=== PATIENT | female | born 1950 | race Caucasian/White ===

== ENCOUNTER 2023-09-01 13:41 | Inpatient (IN) ==
--- NOTE | 2023-09-01 14:03 | ED Triage Note ---
Date of Service September 01, 2023 Provider in Triage Author: Lynda Greenfield History of Present Illness This patient was briefly evaluated while in triage. An abbreviated physical exam was performed. This patient is a 73-year-old Female who presents to the ED for evaluation of nausea/vomiting. States she started with cold like symptoms about 9 days ago. Symptoms started to improve and then got worse last night. Denies fevers. Physical Exam Constitutional: alert and oriented x3. no acute distress. HEENT: normocephalic, atraumatic. normal conjunctiva.PERRLA. EOM's grossly intact. Respiratory: lungs are clear to auscultation without wheezes, rhonchi, or rales bilaterally. equal chest rise. normal respiratory effort, no accessory muscle use. Cardiovascular: normal heart sounds without murmur. regular rate and rhythm. GI: abdomen is soft, nontender. No palpable masses. No rebound tenderness or guarding. MSK: moves all 4 extremities spontaneously Psych:appropriate mood and affect. Initial orders for labs and / or imaging were placed and patient was placed in the waiting area until a bed is available. Please see further documentation for the full ED course.
[2023-09-01] MEDS ORDERED: ONDANSETRON INJ 2 MG/ML 2 ML VIAL IV STA ×2 (14:04→19:47)
[2023-09-01] MEDS ORDERED: SODIUM CHLORIDE 0.9% 500 ML IV ONE ×2 (14:05→19:47)
--- NOTE | 2023-09-01 15:12 | XRay Report ---
XR chest 1V not portable HISTORY: vomiting COMPARISON: None. FINDINGS: The lungs are clear. Cardiac silhouette is normal in size. No pleural effusions. No pneumot horax. IMPRESSION: No acute process. ACT 112: Negative or not required by law. Electronically signed by: Garland Gifford M.D. 09/01/2023 3:10 PM
[2023-09-01 15:59] LABS: Hematocrit (blood only) 34.2 % (37.0-47.0); Hemoglobin 11.7 g/dl (12.0-16.0); Mean Corpuscular Hemoglobin 31.1 pg (25.0-34.0); Mean Corpuscular Hgb Conc 34.2 g/dL (32.0-36.0); Mean Platelet Volume 10.1 fL (9.4-12.4); Platelet Count 152 K/uL (130-400); RDW Coefficient of Variation 13.2 % (11.5-14.5); RDW Standard Deviation 44.4 fL (36.4-46.3); Red Blood Count 3.76 M/uL (4.20-5.40); White Blood Count 13.05 K/ul (4.8-10.8)
[2023-09-01 16:20] LABS: Albumin Globulin Ratio 1.4 (0.9-2); Albumin Level 4.2 gm/dl (3.4-5.0); BUN Creatinine Ratio 20.2 (10-20); Bilirubin,Total 0.7 mg/dl (0.2-1.0); Calcium 9.4 mg/dl (8.6-10.3); Creatinine Clr Calc Pharmacy 31.9 ml/min; Est GFR (African American) 46.9 ml/min; Est GFR (Non-African American) 40.5 ml/min; Potassium 3.7 mmol/L (3.5-5.1); Total Protein 7.2 gm/dl (6.0-8.3)
[2023-09-01 16:21] LABS: Basophils # (auto) 0.02 K/uL (0.00-0.20); Basophils % (auto) 0.2 %; Immature Granulocytes # (auto) 0.08 K/uL (0.01-0.20); Immature Granulocytes % (auto) 0.6 %; Lymphocytes # (auto) 0.42 K/uL (1.20-3.40); Lymphocytes % (auto) 3.2 %; Monocytes % (auto) 3.1 %; Neutrophils # (auto) 12.13 K/uL (1.40-6.50); Neutrophils % (auto) 92.9 %
[2023-09-01 16:23] LABS: Adenovirus PCR Not Detected (NotDetected); Bordetella parapertussis PCR Not Detected (NotDetected); Bordetella pertussis PCR Not Detected (NotDetected); Chlamydia pneumoniae PCR Not Detected (NotDetected); Coronavirus 229E PCR Not Detected (NotDetected); Coronavirus HKU1 PCR Not Detected (NotDetected); Coronavirus NL63 PCR Not Detected (NotDetected); Coronavirus OC43PCR Not Detected (NotDetected); Human Metapneumovirus PCR Not Detected (NotDetected); Influenza A PCR Not Detected (NotDetected); Influenza B PCR Not Detected (NotDetected); Mycoplasma pneumoniae PCR Not Detected (NotDetected); Parainfluenza Virus 1 PCR Not Detected (NotDetected); Parainfluenza Virus 2 PCR Not Detected (NotDetected); Parainfluenza Virus 3 PCR Not Detected (NotDetected); Parainfluenza Virus 4 PCR Not Detected (NotDetected); Respiratory Syncytial VirusPCR Not Detected (NotDetected); Rhinovirus/Enterovirus PCR Not Detected (NotDetected)
[2023-09-01 16:35] LABS: Coronavirus CoV-2 (COVID19)PCR DETECTED (NotDetected)
[2023-09-01 18:01] LABS: Appearance Urine Cloudy (Clear); Bacteria Urine Automated 4+ (Negative); Bilirubin Urine Negative (Negative); Blood Urine 2+ (Negative); Color Urine Yellow; Epithelial Cell Urine Auto 20-30 /lpf (0-5); Glucose Urine UA Negative (Negative); Ketones Urine Negative (Negative); Leukocyte Esterase Urine 2+ (Negative); Nitrite Urine Positive (Negative); Protein Urine 2+ (Negative); RBC Urine Automated 0-4 /hpf (0-4); Specific Gravity Urine 1.017 (1.000-1.030); Urobilinogen Urine Negative (Negative); WBC Urine Automated >30 /hpf (0-5); pH Urine 6.5 (4.5-7.5)
[2023-09-01] MEDS ORDERED: cefTRIAXone SODIUM 2,000 MG/50 ML BAG IV STA (18:03)
[2023-09-01 18:24] LABS: Troponin I High Sensitivity 21.9 pg/ml (0-14)
--- NOTE | 2023-09-01 19:29 | Emergency Department Note ---
Impression & Plan Nausea & vomiting, COVID-19, Acute UTI (urinary tract infection), Non-ST elevation GA (NSTEMI) ED Provider Note HISTORY OF PRESENT ILLNESS: Patient is a 73-year-old female presenting with nausea and vomiting. Patient reports that she has been feeling generally unwell for the last 9 days. Reports that 9 days ago she started feeling very fatigued and slept for 72 hours straight. She reports that she then started having a cough and general malaise that worsened. Reports that today she started having dry heaving. Denies any abdominal pain. Reports poor oral intake secondary to her nausea. Denies any fevers at home, but reports she has had chills. Denies any recent sick contact exposures. Denies any chest pain or significant shortness of breath ROS: as above PHYSICAL EXAM: Constitutional: Patient appears in no acute distress. HENT: Head: Normocephalic and atraumatic. Eyes: EOMI, PERRL Mouth/Throat: Mucous membranes moist. Neck: Trachea midline. Neck supple. Cardiovascular: RRR, No murmurs, rubs or gallops. Intact distal pulses. Pulmonary/Chest: No respiratory distress. Breath sounds clear and equal bilaterally. No wheezes or rales. Abdominal: Abdomen soft, no tenderness, rebound or guarding. Musculoskeletal: No edema, tenderness or deformity noted. Skin: Warm and dry. No rash, erythema, pallor or cyanosis Psychiatric: Appropriate mood and affect for situation. Neurological: Alert and keenly responsive. CN II-XII grossly intact, moving all extremities equally and fully. MDM: - Vitals signs stable. - History obtained via patient. Patient presents with nausea and vomiting. Patient reports she is been feeling unwell for the last 9 days. Denies any abdominal pain. Denies any chest pain or shortness of breath. Reports that she has had poor oral intake secondary to nausea and dry heaving in the last 24 hours. - Chronic conditions affecting care: HTN; HLD; hypothyroidism - Differential diagnoses include, but are not limited to: viral syndrome; UTI; pneumonia; ACS; electrolyte abnormality; dehydration - Order placed for continuous cardiac monitoring. At this time, monitor showed rate of 80 bpm with normal sinus rhythm, per my interpretation. - External medical records reviewed. Patient's last exercise echocardiogram was noted to be on 06/04/2014. Stress test was negative. - EKG interpreted by myself showed normal sinus rhythm. Rate 93 bpm. QTc 474. No acute ischemic changes. - Laboratory workup interpreted by myself showed leukocytosis (WBC 13.05) with left shift; stable electrolytes; slightly elevated creatinine (Cr 1.29); elevated troponin (21.9); normal lipase - Viral respiratory panel positive for COVID-19 - UA showed evidence of infection - Repeat troponin slightly risen at 22.4 - Patient given 1L NS and 4 mg IV zofran for symptoms in ER. Given 2g IV rocephin for UTI - CXR negative for pneumonia, per my interpretation - On reassessment, patient reports feeling slightly nauseous after rocephin. Given 500 cc NS and 4 mg IV zofran again. - Discussion was had with occasional caregiver about patient's case and need for admission - Hospitalist consulted for admission - [facility] ASSESSMENT AND PLAN: Diagnosis: nausea and vomiting; COVID-19; acute UTI; NSTEMI Plan: admit Past Med/Surg History Medical History GERD (gastroesophageal reflux disease) Hyperlipidemia Hypertension Hypothyroidism Osteoarthritis Surgical History History of bilateral tubal ligation History of cataract surgery bilat History of tooth extraction Hx of fracture of tibia left with repair Family History Grandmother (Paternal) Diabetes Brother Diabetes Social History Smoking Status: Never smoker Second Hand Exposure: No; Do You Dip or Chew Tobacco: No; Hx Alcohol Use: No Hx Substance Use: No Preferred Language: Irish Communication Ability: Effective Internal Sales Engineer Required: No Beliefs That Will Affect Care: None Current Living Situation: Spouse Feels Safe at Home: Yes Assistive Devices: Cane and Glasses Allergies Allergies Allergy/AdvReac Type Severity Reaction Status Date / Time alendronate sodium AdvReac Severe N/V, Verified 09/01/23 19:09 [From Fosamax] LIGHTHEADEDNESS, MUSCLE PAIN, JAW PAIN Home Meds Home Medications Medication Instructions Recorded Confirmed acetaminophen 500 mg capsule 1,000 mg PO TID PRN Pain 01/13/22 09/01/23 amlodipine 5 mg-benazepril 10 mg 1 cap PO QAM 01/13/22 09/01/23 capsule aspirin 81 mg tablet,delayed 81 mg PO PM 01/13/22 09/01/23 release celecoxib 200 mg capsule (Celebrex) 200 mg PO DAILY PRN Pain 01/13/22 09/01/23 cholecalciferol (vitamin D3) 25 25 mcg PO PM 01/13/22 09/01/23 mcg (1,000 unit) capsule (Vitamin D3) levothyroxine 75 mcg tablet 75 mcg PO QAM 01/13/22 09/01/23 rosuvastatin 40 mg tablet (Crestor) 40 mg PO PM 01/13/22 09/01/23 omeprazole 20 mg capsule,delayed 20 mg PO DAILY PRN 09/01/23 09/01/23 release HEARTBURN/INDIGESTION Results & Data (ED) Vital Signs Vital Signs - 24 hr 09/01/23 14:01 09/01/23 16:55 09/01/23 19:27 Temperature 36.6 C Temperature Source Skin Pulse Rate 90 Pulse Rate [Apical] 79 Pulse Rate [Left Finger] 70 Respiratory Rate 18 20 21 Respiratory Effort / Characteristics Non-Labored Spontaneous Respiratory Pattern Regular Blood Pressure 121/66 Blood Pressure [Left Arm] 115/70 115/70 Blood Pressure Mean 84 Blood Pressure Mean [Left Arm] 85 85 Blood Pressure Position [Left Arm] Semi-fowlers Pulse Oximetry 95 98 96 Oxygen Delivery Method Room Air Sepsis Recent Fever Within 48 Hours No Sepsis New/Unexplained Change in Mental Status No Sepsis Action Taken by Nursing No Action Required 09/01/23 19:29 Temperature Temperature Source Pulse Rate 81 Pulse Rate [Apical] Pulse Rate [Left Finger] Respiratory Rate Respiratory Effort / Characteristics Respiratory Pattern Blood Pressure Blood Pressure [Left Arm] Blood Pressure Mean Blood Pressure Mean [Left Arm] Blood Pressure Position [Left Arm] Pulse Oximetry Oxygen Delivery Method Sepsis Recent Fever Within 48 Hours Sepsis New/Unexplained Change in Mental Status Sepsis Action Taken by Nursing Laboratory Data 09/01/23 15:20 09/01/23 15:20 Lab Results 09/01/23 09/01/23 09/01/23 Range/Units 14:04 15:20 15:37 WBC 13.05 H (4.8-10.8) K/ul RBC 3.76 L (4.20-5.40) M/uL Hgb 11.7 L (12.0-16.0) g/dl Hct 34.2 L (37.0-47.0) % MCV 91.0 (80.0-100.0) fL MCH 31.1 (25.0-34.0) pg MCHC 34.2 (32.0-36.0) g/dL RDW Std Deviation 44.4 (36.4-46.3) fL RDW Coeff of Peter 13.2 (11.5-14.5) % Plt Count 152 (130-400) K/uL MPV 10.1 (9.4-12.4) fL Immature Gran % (Auto) 0.6 % Neut % (Auto) 92.9 % Lymph % (Auto) 3.2 % [place] % (Auto) 3.1 % Eos % (Auto) 0.0 % Baso % (Auto) 0.2 % Neut # (Auto) 12.13 H (1.40-6.50) K/uL Lymph # (Auto) 0.42 L (1.20-3.40) K/uL [place] # (Auto) 0.40 (0.11-0.59) K/uL Eos # (Auto) 0.00 (0.00-0.50) K/uL Baso # (Auto) 0.02 (0.00-0.20) K/uL Immature Gran # (Auto) 0.08 (0.01-0.20) K/uL Sodium 137 (136-145) mmol/L Potassium 3.7 (3.5-5.1) mmol/L Chloride 103 (98-107) mmol/L Carbon Dioxide 25 (21-32) mmol/L Anion Gap 9 (3-11) BUN 26 H (6-23) mg/dl Creatinine 1.29 H (0.6-1.2) mg/dl Est Cr Clr Drug Dosing 31.9 ml/min Est GFR ( Amer) 46.9 ml/min Est GFR (Non-Af Amer) 40.5 ml/min BUN/Creatinine Ratio 20.2 H (10-20) Glucose 114 H (70-99(Fasting)) mg/dl Calcium 9.4 (8.6-10.3) mg/dl Total Bilirubin 0.7 (0.2-1.0) mg/dl AST 15 (13-39) U/L ALT 14 (7-52) U/L Alkaline Phosphatase 89 (34-104) U/L Troponin I High Sens 21.9 H (0-14) pg/ml Total Protein 7.2 (6.0-8.3) gm/dl Albumin 4.2 (3.4-5.0) gm/dl Globulin 3.0 (2.5-4.0) gm/dl Albumin/Globulin Ratio 1.4 (0.9-2) Lipase 12 (11-82) U/L Urine Color Yellow Urine Appearance Cloudy A (Clear) Urine pH 6.5 (4.5-7.5) Ur Specific [place] 1.017 (1.000-1.030) Urine Protein 2+ H (Negative) Urine Glucose (UA) Negative (Negative) Urine Ketones Negative (Negative) Urine Blood 2+ H (Negative) Urine Nitrite Positive A (Negative) Urine Bilirubin Negative (Negative) Urine Urobilinogen Negative (Negative) Ur Leukocyte Esterase 2+ H (Negative) Urine WBC (Auto) >30 H (0-5) /hpf Urine RBC (Auto) 0-4 (0-4) /hpf U Hyaline Cast (Auto) 1-5 (0-5) /lpf U Epithel Cells (Auto) 20-30 H (0-5) /lpf Urine Bacteria (Auto) 4+ H (Negative) Adenovirus (PCR) Not Detected (NotDetected) B. pertussis DNA (PCR) Not Detected (NotDetected) B.parapertussis DNA PCR Not Detected (NotDetected) C. pneumoniae DNA (PCR) Not Detected (NotDetected) Coronavirus OC43 (PCR) Not Detected (NotDetected) Coronavirus HKU1 (PCR) Not Detected (NotDetected) Coronavirus 229E (PCR) Not Detected (NotDetected) SARS-CoV-2 (PCR) DETECTED A* (NotDetected) Coronavirus NL63 (PCR) Not Detected (NotDetected) Human Metapneumovir PCR Not Detected (NotDetected) Influenza Type A (PCR) Not Detected (NotDetected) Influenza Type B (PCR) Not Detected (NotDetected) M. pneumoniae (PCR) Not Detected (NotDetected) Parainfluenza 1 (PCR) Not Detected (NotDetected) Parainfluenza 2 (PCR) Not Detected (NotDetected) Parainfluenza 3 (PCR) Not Detected (NotDetected) Parainfluenza 4 (PCR) Not Detected (NotDetected) RSV (PCR) Not Detected (NotDetected) Entero/Rhino (PCR) Not Detected (NotDetected) 09/01/23 Range/Units 17:32 WBC (4.8-10.8) K/ul RBC (4.20-5.40) M/uL Hgb (12.0-16.0) g/dl Hct (37.0-47.0) % MCV (80.0-100.0) fL MCH (25.0-34.0) pg MCHC (32.0-36.0) g/dL RDW Std Deviation (36.4-46.3) fL RDW Coeff of Peter (11.5-14.5) % Plt Count (130-400) K/uL MPV (9.4-12.4) fL Immature Gran % (Auto) % Neut % (Auto) % Lymph % (Auto) % [place] % (Auto) % Eos % (Auto) % Baso % (Auto) % Neut # (Auto) (1.40-6.50) K/uL Lymph # (Auto) (1.20-3.40) K/uL [place] # (Auto) (0.11-0.59) K/uL Eos # (Auto) (0.00-0.50) K/uL Baso # (Auto) (0.00-0.20) K/uL Immature Gran # (Auto) (0.01-0.20) K/uL Sodium (136-145) mmol/L Potassium (3.5-5.1) mmol/L Chloride (98-107) mmol/L Carbon Dioxide (21-32) mmol/L Anion Gap (3-11) BUN (6-23) mg/dl Creatinine (0.6-1.2) mg/dl Est Cr Clr Drug Dosing ml/min Est GFR ( Amer) ml/min Est GFR (Non-Af Amer) ml/min BUN/Creatinine Ratio (10-20) Glucose (70-99(Fasting)) mg/dl Calcium (8.6-10.3) mg/dl Total Bilirubin (0.2-1.0) mg/dl AST (13-39) U/L ALT (7-52) U/L Alkaline Phosphatase (34-104) U/L Troponin I High Sens 22.4 H (0-14) pg/ml Total Protein (6.0-8.3) gm/dl Albumin (3.4-5.0) gm/dl Globulin (2.5-4.0) gm/dl Albumin/Globulin Ratio (0.9-2) Lipase (11-82) U/L Urine Color Urine Appearance (Clear) Urine pH (4.5-7.5) Ur Specific [place] (1.000-1.030) Urine Protein (Negative) Urine Glucose (UA) (Negative) Urine Ketones (Negative) Urine Blood (Negative) Urine Nitrite (Negative) Urine Bilirubin (Negative) Urine Urobilinogen (Negative) Ur Leukocyte Esterase (Negative) Urine WBC (Auto) (0-5) /hpf Urine RBC (Auto) (0-4) /hpf U Hyaline Cast (Auto) (0-5) /lpf U Epithel Cells (Auto) (0-5) /lpf Urine Bacteria (Auto) (Negative) Adenovirus (PCR) (NotDetected) B. pertussis DNA (PCR) (NotDetected) B.parapertussis DNA PCR (NotDetected) C. pneumoniae DNA (PCR) (NotDetected) Coronavirus OC43 (PCR) (NotDetected) Coronavirus HKU1 (PCR) (NotDetected) Coronavirus 229E (PCR) (NotDetected) SARS-CoV-2 (PCR) (NotDetected) Coronavirus NL63 (PCR) (NotDetected) Human Metapneumovir PCR (NotDetected) Influenza Type A (PCR) (NotDetected) Influenza Type B (PCR) (NotDetected) M. pneumoniae (PCR) (NotDetected) Parainfluenza 1 (PCR) (NotDetected) Parainfluenza 2 (PCR) (NotDetected) Parainfluenza 3 (PCR) (NotDetected) Parainfluenza 4 (PCR) (NotDetected) RSV (PCR) (NotDetected) Entero/Rhino (PCR) (NotDetected) Administered Medications Discontinued Medications Sodium Chloride (Nss) 500 mls @ 999 mls/hr IV .Q31M ONE Stop: 09/01/23 14:35 Last Infusion: 09/01/23 16:00 Dose: Infused Documented By: Admin: 09/01/23 15:29 Dose: 999 mls/hr Documented By: STEPH Ceftriaxone Sodium (Rocephin) 2,000 mg in 50 mls @ 100 mls/hr IV NOW STA Stop: 09/01/23 18:32 Last Infusion: 09/01/23 18:40 Dose: Infused Documented By: Admin: 09/01/23 18:07 Dose: 100 mls/hr Documented By: SOLITARIO Ondansetron HCl (Ondansetron Inj 2 Mg/Ml 2 Ml Vial) 4 mg IV NOW STA Stop: 09/01/23 14:05 Last Admin: 09/01/23 15:29 Dose: 4 mg Documented By: STEPH Imaging Data Radiologist's Impression: Chest X-Ray 09/01/23 14:03 XR chest 1V not portable HISTORY: vomiting COMPARISON: None. FINDINGS: The lungs are clear. Cardiac silhouette is normal in size. No pleural effusions. No pneumothorax. IMPRESSION: No acute process. ACT 112: Negative or not required by law. Electronically signed by: Garland Gifford M.D. 09/01/2023 3:10 PM Discharge Plan Visit Data Chief Complaint: Flu Like Symptoms Stated Complaint: FLU LIKE SYMPTOMS FOR 9 DAYS ED Provider: Xi Ramírez Discharge Problem: Nausea & vomiting, COVID-19, Acute UTI (urinary tract infection), Non-ST elevation GA (NSTEMI) Patient Disposition: Home - Self-Care Discharge Instructions Krames/Other Patient Handouts: COVID-19 Home Care, ED Cystitis Female Adult Activity Restrictions/Additional Instructions: Your workup in the emergency department today showed that she had a urinary tract infection and tested positive for COVID-19. Recommend staying well- hydrated for the next few days and slowly advancing her diet as tolerated. Please take the antibiotic for your urine infection as instructed. Please return to the emergency department if you develop inability to tolerate oral intake, chest pain or shortness of breath, increased work of breathing, changes in mental status, or any new or worsening symptoms for Forms Stand Alone Forms: My [facility], Important Visit Information Prescriptions Prescriptions: No Action celecoxib [Celebrex] 200 mg Capsule 200 mg PO DAILY PRN (Reason: Pain) aspirin 81 mg Tablet,Delayed Release (Dr/Ec) 81 mg PO PM levothyroxine 75 mcg Tablet 75 mcg PO QAM amlodipine-benazepril 5-10 mg Capsule 1 cap PO QAM acetaminophen 500 mg Capsule 1,000 mg PO TID PRN (Reason: Pain) cholecalciferol (vitamin D3) [Vitamin D3] 25 mcg (1,000 unit) Capsule 25 mcg PO PM rosuvastatin [Crestor] 40 mg Tablet 40 mg PO PM omeprazole 20 mg Capsule,Delayed Release(Dr/Ec) 20 mg PO DAILY PRN (Reason: HEARTBURN/INDIGESTION) Referrals Referrals: Mariluz Peace MD [Primary Care Provider] -
--- NOTE | 2023-09-01 21:32 | History & Physical Report ---
Date of Service September 01, 2023 Assessment & Plan (1) COVID-19: Plan: 73-year-old female with past med history significant for hypothyroidism, hypertension, prediabetes, left bundle branch block, hypertension, CKD stage III, osteoarthritis, comes because of nausea and chills and flulike symptoms and found to COVID and UTI. Patient states she had flu like symptoms 9 days ago and for first 4 days she was lethargic had headaches and poor appetite and body ach es but no fevers and that got better after 4 days for couple of days then again she was not feeling great and last night she developed nausea and chills which prompted her to come to the ER today. Has some mild headache today. Denies any chest pain. Currently no shortness of breath. Has some nausea. Mild abdominal discomfort. 1 week ago she had diarrhea but that got resolved. Micturating okay. No burning micturition. No hematuria. Currently resting comfortably. COVID-19 Says having symptoms for last 9 days Saturating okay on room air COVID precautions Supportive care UTI Contributing to her symptoms Started on Rocephin Gentle fluids Follow the cultures Mild elevation of troponin Mostly demand ischemia Asymptomatic Follow serial enzymes Hypothyroidism On Synthyroid Prediabetes Follow HbA1c levels CKD stage III Presented with creatinine 1.29 Seems around baseline Follow labs DVT prophylaxis Lovenox Disposition Med/tele Full code History of Present Illness Chief Complaint: COVID and UTI Primary Care Provider: Mariluz Peace MD 73-year-old female with past med history significant for hypothyroidism, hypertension, prediabetes, left bundle branch block, hypertension, CKD stage III, osteoarthritis, comes because of nausea and chills and flulike symptoms and found to COVID and UTI. Patient states she had flu like symptoms 9 days ago and for first 4 days she was lethargic had headaches and poor appetite and body aches but no fevers and that got better after 4 days for couple of days then again she was not feeling great and last night she developed nausea and chills which prompted her to come to the ER today. Has some mild headache today. Denies any chest pain. Currently no shortness of breath. Has some nausea. Mild abdominal discomfort. 1 week ago she had diarrhea but that got resolved. Micturating okay. No burning micturition. No hematuria. Currently resting comfortably. Past medical history. As mentioned above. Past surgical history. Left ankle surgery. Cataracts Social history. . Smoked quarter pack a day for 8 years. No alcohol use. No drug use. Family history. Brother had diabetes. Heart disorder. Father had hyperlipidemia. Hypertension. Mother had lung disorder. Allergies Allergy/AdvReac Type Severity Reaction Status Date / Time alendronate sodium AdvReac Severe N/V, Verified 09/01/23 19:09 [From Fosamax] LIGHTHEADEDNESS, MUSCLE PAIN, JAW PAIN Home Medications Medication Instructions Recorded Confirmed Type acetaminophen 500 mg capsule 1,000 mg PO TID PRN Pain 01/13/22 09/01/23 History amlodipine 5 mg-benazepril 10 mg 1 cap PO QAM 01/13/22 09/01/23 History capsule aspirin 81 mg tablet,delayed 81 mg PO PM 01/13/22 09/01/23 History release celecoxib 200 mg capsule (Celebrex) 200 mg PO DAILY PRN Pain 01/13/22 09/01/23 History cholecalciferol (vitamin D3) 25 25 mcg PO PM 01/13/22 09/01/23 History mcg (1,000 unit) capsule (Vitamin D3) levothyroxine 75 mcg tablet 75 mcg PO QAM 01/13/22 09/01/23 History rosuvastatin 40 mg tablet (Crestor) 40 mg PO PM 01/13/22 09/01/23 History omeprazole 20 mg capsule,delayed 20 mg PO DAILY PRN 09/01/23 09/01/23 History release HEARTBURN/INDIGESTION Past Med/Surg History Medical History GERD (gastroesophageal reflux disease) Hyperlipidemia Hypertension Hypothyroidism Osteoarthritis Surgical History History of bilateral tubal ligation History of cataract surgery bilat History of tooth extraction Hx of fracture of tibia left with repair Family History Grandmother (Paternal) Diabetes Brother Diabetes Social History Smoking Status: Never smoker Second Hand Exposure: No; Do You Dip or Chew Tobacco: No; Hx Alcohol Use: No Hx Substance Use: No Preferred Language: [place]ican Communication Ability: Effective Ultrasonographer Required: No Beliefs That Will Affect Care: None Current Living Situation: Spouse Feels Safe at Home: Yes Assistive Devices: None Review of Systems Review of Systems: All systems reviewed & are unremarkable except as noted in HPI & below Physical Exam Physical Exam: General- adult Head- atraumatic Eyes- PERRL. ENT- oropharynx clear Neck- supple, no JVD. Lungs- clear to auscultation no wheezing or crackles Heart- regular rhythm; no murmur, no gallop. Abdomen- normal bowel sounds, soft, nontender, no distension. Extremities- no pretibial edema, no erythema Neuro- alert, oriented x 3; PERRL, no facial palsy; no dysarthria; moves extremities Skin- warm & dry Results & Data Results & Data Vital Signs (Past 12 Hours) Vital Signs Temp Pulse Pulse Pulse Resp BP BP 09/01/23 19:29 81 09/01/23 19:27 79 21 115/70 09/01/23 16:55 70 20 115/70 09/01/23 14:01 36.6 C 90 18 121/66 Pulse Ox O2 Del Method 09/01/23 19:29 09/01/23 19:27 96 Room Air 09/01/23 16:55 98 09/01/23 14:01 95 Diagnostic Findings Laboratory Results WBC 13.05 K/ul (4.8-10.8) H 09/01/23 15:20 RBC 3.76 M/uL (4.20-5.40) L 09/01/23 15:20 Hgb 11.7 g/dl (12.0-16.0) L 09/01/23 15:20 Hct 34.2 % (37.0-47.0) L 09/01/23 15:20 MCV 91.0 fL (80.0-100.0) 09/01/23 15:20 MCH 31.1 pg (25.0-34.0) 09/01/23 15:20 MCHC 34.2 g/dL (32.0-36.0) 09/01/23 15:20 RDW Std Deviation 44.4 fL (36.4-46.3) 09/01/23 15:20 RDW Coeff of Peter 13.2 % (11.5-14.5) 09/01/23 15:20 Plt Count 152 K/uL (130-400) 09/01/23 15:20 MPV 10.1 fL (9.4-12.4) 09/01/23 15:20 Immature Gran % (Auto) 0.6 % 09/01/23 15:20 Neut % (Auto) 92.9 % 09/01/23 15:20 Lymph % (Auto) 3.2 % 09/01/23 15:20 [place] % (Auto) 3.1 % 09/01/23 15:20 Eos % (Auto) 0.0 % 09/01/23 15:20 Baso % (Auto) 0.2 % 09/01/23 15:20 Neut # (Auto) 12.13 K/uL (1.40-6.50) H 09/01/23 15:20 Lymph # (Auto) 0.42 K/uL (1.20-3.40) L 09/01/23 15:20 Franklin # (Auto) 0.40 K/uL (0.11-0.59) 09/01/23 15:20 Eos # (Auto) 0.00 K/uL (0.00-0.50) 09/01/23 15:20 Baso # (Auto) 0.02 K/uL (0.00-0.20) 09/01/23 15:20 Immature Gran # (Auto) 0.08 K/uL (0.01-0.20) 09/01/23 15:20 Sodium 137 mmol/L (136-145) 09/01/23 15:20 Potassium 3.7 mmol/L (3.5-5.1) 09/01/23 15:20 Chloride 103 mmol/L (98-107) 09/01/23 15:20 Carbon Dioxide 25 mmol/L (21-32) 09/01/23 15:20 Anion Gap 9 (3-11) 09/01/23 15:20 BUN 26 mg/dl (6-23) H 09/01/23 15:20 Creatinine 1.29 mg/dl (0.6-1.2) H 09/01/23 15:20 Est Cr Clr Drug Dosing 31.9 ml/min 09/01/23 15:20 Est GFR ( Amer) 46.9 ml/min 09/01/23 15:20 Est GFR (Non-Af Amer) 40.5 ml/min 09/01/23 15:20 BUN/Creatinine Ratio 20.2 (10-20) H 09/01/23 15:20 Glucose 114 mg/dl (70-99(Fasting)) H 09/01/23 15:20 Calcium 9.4 mg/dl (8.6-10.3) 09/01/23 15:20 Total Bilirubin 0.7 mg/dl (0.2-1.0) 09/01/23 15:20 AST 15 U/L (13-39) 09/01/23 15:20 ALT 14 U/L (7-52) 09/01/23 15:20 Alkaline Phosphatase 89 U/L (34-104) 09/01/23 15:20 Troponin I High Sens 22.4 pg/ml (0-14) H 09/01/23 17:32 Total Protein 7.2 gm/dl (6.0-8.3) 09/01/23 15:20 Albumin 4.2 gm/dl (3.4-5.0) 09/01/23 15:20 Globulin 3.0 gm/dl (2.5-4.0) 09/01/23 15:20 Albumin/Globulin Ratio 1.4 (0.9-2) 09/01/23 15:20 Lipase 12 U/L (11-82) 09/01/23 15:20 Urine Color Yellow 09/01/23 15:37 Urine Appearance Cloudy (Clear) A 09/01/23 15:37 Urine pH 6.5 (4.5-7.5) 09/01/23 15:37 Ur Specific [place] 1.017 (1.000-1.030) 09/01/23 15:37 Urine Protein 2+ (Negative) H 09/01/23 15:37 Urine Glucose (UA) Negative (Negative) 09/01/23 15:37 Urine Ketones Negative (Negative) 09/01/23 15:37 Urine Blood 2+ (Negative) H 09/01/23 15:37 Urine Nitrite Positive (Negative) A 09/01/23 15:37 Urine Bilirubin Negative (Negative) 09/01/23 15:37 Urine Urobilinogen Negative (Negative) 09/01/23 15:37 Ur Leukocyte Esterase 2+ (Negative) H 09/01/23 15:37 Urine WBC (Auto) >30 /hpf (0-5) H 09/01/23 15:37 Urine RBC (Auto) 0-4 /hpf (0-4) 09/01/23 15:37 U Hyaline Cast (Auto) 1-5 /lpf (0-5) 09/01/23 15:37 U Epithel Cells (Auto) 20-30 /lpf (0-5) H 09/01/23 15:37 Urine Bacteria (Auto) 4+ (Negative) H 09/01/23 15:37 Adenovirus (PCR) Not Detected (NotDetected) 09/01/23 14:04 B. pertussis DNA (PCR) Not Detected (NotDetected) 09/01/23 14:04 B.parapertussis DNA PCR Not Detected (NotDetected) 09/01/23 14:04 C. pneumoniae DNA (PCR) Not Detected (NotDetected) 09/01/23 14:04 Coronavirus OC43 (PCR) Not Detected (NotDetected) 09/01/23 14:04 Coronavirus HKU1 (PCR) Not Detected (NotDetected) 09/01/23 14:04 Coronavirus 229E (PCR) Not Detected (NotDetected) 09/01/23 14:04 SARS-CoV-2 (PCR) DETECTED (NotDetected) A* 09/01/23 14:04 Coronavirus NL63 (PCR) Not Detected (NotDetected) 09/01/23 14:04 Human Metapneumovir PCR Not Detected (NotDetected) 09/01/23 14:04 Influenza Type A (PCR) Not Detected (NotDetected) 09/01/23 14:04 Influenza Type B (PCR) Not Detected (NotDetected) 09/01/23 14:04 M. pneumoniae (PCR) Not Detected (NotDetected) 09/01/23 14:04 Parainfluenza 1 (PCR) Not Detected (NotDetected) 09/01/23 14:04 Parainfluenza 2 (PCR) Not Detected (NotDetected) 09/01/23 14:04 Parainfluenza 3 (PCR) Not Detected (NotDetected) 09/01/23 14:04 Parainfluenza 4 (PCR) Not Detected (NotDetected) 09/01/23 14:04 RSV (PCR) Not Detected (NotDetected) 09/01/23 14:04 Entero/Rhino (PCR) Not Detected (NotDetected) 09/01/23 14:04 Impressions Chest X-Ray 09/01/23 14:03 XR chest 1V not portable HISTORY: vomiting COMPARISON: None. FINDINGS: The lungs are clear. Cardiac silhouette is normal in size. No pleural effusions. No pneumothorax. IMPRESSION: No acute process. ACT 112: Negative or not required by law. Electronically signed by: Garland Gifford M.D. 09/01/2023 3:10 PM ECG Additional Comments: ECG. Normal sinus rhythm with a rate of 93. Left axis deviation. Code Status & VTE Plan VTE Prophylaxis Plan VTE Prophylaxis will be ordered: Yes
[2023-09-01] MEDS ORDERED: NITROGLYCERIN SL 0.4 MG/TAB TAB SL PRN (23:32)
[2023-09-01] MEDS ORDERED: ACETAMINOPHEN 325 MG TAB PO PRN (23:32)
[2023-09-01] MEDS ORDERED: D5W AND 1/2NSS 1,000 ML IV SCH (23:32)
[2023-09-01] MEDS ORDERED: ONDANSETRON INJ 2 MG/ML 2 ML VIAL IV PRN (23:32)
[2023-09-01] MEDS ORDERED: PANTOprazole 40 MG TAB PO PRN (23:40)
[2023-09-02] MEDS: ENOXAPARIN INJ 40 MG/0.4 ML SYR SQ SCH ×2 (02:11→20:40)
[2023-09-02] MEDS: LEVOTHYROXINE SODIUM 75 MCG TABLET PO SCH (06:04)
[2023-09-02 06:16] LABS: Basophils # (auto) 0.02 K/uL (0.00-0.20); Basophils % (auto) 0.3 %; Eosinophils # (auto) 0.01 K/uL (0.00-0.50); Eosinophils % (auto) 0.1 %; Hematocrit (blood only) 30.8 % (37.0-47.0); Immature Granulocytes # (auto) 0.02 K/uL (0.01-0.20); Immature Granulocytes % (auto) 0.3 %; Lymphocytes % (auto) 10.6 %; Mean Corpuscular Hgb Conc 32.5 g/dL (32.0-36.0); Mean Corpuscular Volume 92.5 fL (80.0-100.0); Mean Platelet Volume 10.5 fL (9.4-12.4); Monocytes # (auto) 0.44 K/uL (0.11-0.59); Monocytes % (auto) 5.8 %; Neutrophils # (auto) 6.26 K/uL (1.40-6.50); Neutrophils % (auto) 82.9 %; Platelet Count 117 K/uL (130-400); RDW Coefficient of Variation 13.2 % (11.5-14.5); Red Blood Count 3.33 M/uL (4.20-5.40); White Blood Count 7.55 K/ul (4.8-10.8)
[2023-09-02 06:22] LABS: BUN Creatinine Ratio 16.5 (10-20); Calcium 8.4 mg/dl (8.6-10.3); Est GFR (African American) 50.7 ml/min; Est GFR (Non-African American) 43.7 ml/min; Magnesium 2.1 mg/dl (1.7-2.4); Potassium 3.7 mmol/L (3.5-5.1)
[2023-09-02 06:32] LABS: Troponin I High Sensitivity 13.4 pg/ml (0-14)
--- OUTSIDE RECORDS SUMMARY | 2023-09-02 07:00 | External Medical Summary | Summary of Care ---
Author Name Unknown Organization [facility] Address [address] [place] [address] Phone [phone] Care Team Providers Care Hose Handler Name Role Phone Mariluz Peace MD Primary Care Provider [phone] Reason for Visit * Reason Comments eRx-Medication Refill Encounter Details Date Type Department Care Team (Late st Contact Info) Description 08/02/2023 Refill General Internal Medicine [facility] [address] [place] [address] Mariluz Peace MD [address] [place] [address] HTN, goal below 140/90 Allergies Active Allergy Reactions Criticality Noted Date Comments Alendronate Nausea/vomiting Low 09/29/2022 Lightheadedness, muscle aches, jaw pain documented as of this encounter (statuses as of 08/02/2023) Medications Medication Sig Dispensed Refills Start Date End Date Status CELEBREX 200 MG PO CAPS One pill by mouth once a day for pain as needed 30 Cap 11 06/23/2011 Active Vitamin D-3 25 MCG (1000 UT) Oral Capsule Take 1 Capsule by mouth in the morning. Pt started 08/2020. 1 Cap 0 09/11/2020 Active Omeprazole 20 MG Oral Capsule Delayed Release (PriLOSEC) Take 1 Capsule by mouth as needed (Acid Reflux). As needed for stomach upset 0 Active Aspirin 81 MG Oral Tablet Delayed Release (Ecotrin Low Strength)Indications :Essential hypertension with goal blood pressure less than 140/90,Dyslipidemia, goal LDL below 100,Left bundle branch block Take by mouth 1 Tablet in the morning. Inc back to /d 12/08/2021. 100 Tablet 5 12/08/2021 Active Acetaminophen 500 MG Oral Tablet (Tylenol)Indications :Generalized osteoarthritis of multiple sites Take 2 Tablets (1,000 mg) by mouth 3 times a day as needed for Pain, Moderate. 100 Tablet 0 07/11/2022 Active Rosuvastatin Calcium 40 MG Oral Tablet (Crestor)Indications :Dyslipidemia, goal LDL below 100 TAKE 1 TABLET BY MOUTH DAILY IN THE EVENING 90 Tablet 1 04/14/2023 Active Levothyroxine Sodium 75 MCG Oral Tablet (Levoxyl)Indications :Acquired hypothyroidism TAKE ONE TABLET BY MOUTH EVERY DAY FIRST THING IN THE MORNING 90 Tablet 2 05/05/2023 Active amLODIPine Besy-Benazepril HCl 5-10 MG Oral Capsule (Lotrel)Indications: HTN, goal below 140/90 TAKE 1 CAPSULE BY MOUTH EVERY DAY 90 Capsule 1 08/02/2023 Active amLODIPine Besy-Benazepril HCl 5-10 MG Oral Capsule (Lotrel)Indications: HTN, goal below 140/90 TAKE 1 CAPSULE BY MOUTH EVERY DAY 90 Capsule 2 10/13/2022 3 Discontinued documented as of this encounter (statuses as of 08/02/2023) Active Problems Problem Noted Date Diagnosed Date Chronic kidney disease, stage 3b 01/02/2023 Overview: Per CKD protocol Age-related osteoporosis wit hout current pathological fracture 01/11/2022 Overview: 01/16--2.7/-2.1--HR (having Rt Knee meniscal repair soon)--chandan f/u Prediabetes 07/06/2020 Overview: Per Prediabetes protocol History of fracture of left ankle 11/08/2018 Overview: 2001 --Andrewall frac--sp ORIF Encounter for screening mammogram for breast can cer 11/08/2018 Overview: Mammo neg 07/15;11/15 Pap smear for cervical cancer screening 11/09/19 Overview: Arielle--pap neg 05/2014 Screen for colon cancer 11/08/2018 Overview: Never had csope, will do cologuard. Screening for osteoporosis 11/08/2018 Overview: 11/13-defers dexa>09/16-willing to chandan Dyslipidemia, goal LDL below 100 11/08/2018 Essential hypertension with goal blood pressure less than 140/90 02/03/2016 Acquired hypothyroidism 01/12/2016 Left bundle branch block 06/23/2011 Overview: Known hx since 2004 with echo in 2004>>>06/10-stress echo neg Localized, primary osteoarthritis of ankle or fo ot 02/04/2009 documented as of this encounter (statuses as of 08/02/2023) Resolved Problems Problem Noted Date Diagnosed Date Resolved Date Chronic kidney disease, stage 3a 07/11/2022 01/04/2023 Overview: Per CKD protocol Elevated liver enzymes 12/24/200911/27 Dyslipidemia, goal to be determined 08/06/2009 06/23/2011 Overview: Per Lipid Taxonomy. Esophageal reflux 02/04/2009 11/08/2018 HTN, goal below 140/90 02/04/200902/02 HYPOTHYROIDISM NOS 02/04/2009 6 Mixed dyslipidemia 02/04/2009 9 Overview: Per Lipid Taxonomy. documented as of this encounter (statuses as of 08/02/2023) Immunizations Name Administration Dates Next Due COVID-19 mRNA, LNP-s, No Pre serve, 2-Dose Series (NullPointer) 09/20/2021,12/29/2020,12/08/2020 Pneumococcal Conjugate Vacc, 13 Valent (Prevnar) 02/03/2016 Pneumococcal Polysaccharide PPV23 (Pneumovax) 06/12/2014 SEASONAL INFLUENZA, PF, 6 M & Above, IM , (FLULAVAL or FLUZONE) 08/06/2018 Seasonal Influenza, Quadriva lent Hd (Fluzone Hd) 07/11/2022 Seasonal Influenza, Quadriva lent Hd, 65+ Yrs 06/21/2020 Seasonal Influenza, Quadriva lent, No Preserve, IM 09/04/2015 Seasonal Influenza, Split, I IV3, With Preserve, Inj 07/07/2019,09/02/2016 TDAP (age 10 and older)(Boostrix) 06/26/2012 TDAP (age 11 and older)(Adacel) 08/28/2001 Varicella Zoster Vaccine (Adult) 11/25/2014 Zoster Vaccine Recombinant (Shingrix) 10/24/2019 documented as of this encounter Social History Tobacco Use Types Packs/Day Years Used Date Smoking Tobacco: Former Cigarettes 0.3 8 Smokeless Tobacco: Never Alcohol Use Standard Drinks/Week Comments No 0 (1 standard drink = 0.6 oz pur e alcohol) PHQ-2 Answer Date Recorded PHQ Adult Total Score 0 12/29/2022 Sex and Gender Information Value Date Recorded Sex Assigned at Not on file Gender Identity Not on file Sexual Orientation Not on file Job Start Date Occupation Industry Not on file Not on file Not on file documented as of this encounter Miscellaneous Notes * Telephone Encounter - Nelda Campa RPh - 08/02/2023 12:56 PM EST Signed Prescriptions: Disp Refills amLODIPine Besy-Benazepril HCl 5-10 MG Ora*90 Cap*1 Sig: TAKE 1 CAPSULE BY MOUTH EVERY DAYAuthorizing Provider: Viridiana PEACE User: NELDA CAMPA------- documented in this encounter Plan of Treatment Upcoming Encounters Date Type Department Care Team (Late st Contact Info) Description 09/11/2023 11:20 AM EST Office Visit General Internal Medicine [address] [place], [place] [address] Mariluz Peace MD [address] [place], [place] [address] Health Maintenance Due Date Last Done Comments Zoster Vaccines (3 of 3) 12/19/2019 10/24/2019, 10/28 DTaP,Tdap,and Td Vaccines (3 - Td or Tdap) 06/26/2022 06/26/2012, 08/28/2001 *BISPHONATE OR OTHER ACCEPTABLE MEDICATION NEEDED FOR OSTEOPOROSIS (REFER TO SMARTSET #1146) 10/01/2022 COVID-19 Vaccine ( season) 2023 09/20/2021, 12/29/2020, 12/08/2020 Influenza Vaccine (FLU shot) (#1) 2023 07/11/2022, 06/21/2020, 07/07/2019, Additional history exists GFR 06/23/2023 12/22/2022, 1103/2022, 01/12/2022, Additional history exists Albumin/Creatinine Ratio 12/23/2023 023, 07/05/2022, 01/06/2022, Additional history exists CKD HGB USE SMARTSET 76441 12/23/202312/22, 12/22/2022, 01/12/2022, Additional history exists CKD PHOS USE SMARTSET 75741 12/23/2023 12/22/2022 HbA1c 12/23/2023 12/22/2022, 11/0 03/2022, 12/01/2021, Additional history exists TSH 12/23/2023 12/22/2022, 11/0 03/2022, 01/06/2022, Additional history exists Depression Screening 12/30/2023 12/29/2022 DXA Scan 01/05/2024 01/04/2022 Pneumococcal Vaccine: 65+ Years Completed 02/03/2016, 06/12/2014 Cologuard Discontinued 09/12/2019 Colorectal Cancer Screening Discontinued VITAMIN D LEVEL ONCE IN A LIFETIME-USE SMARTSET# [id number] Completed 07/11/2022 Colonoscopy Discontinued Fecal Occult Blood Test Discontinued GARDASIL-HPV IMMUNIZATION SERIES Aged Out No longer eligible based on patient's age to complete this topic Hepatitis B Aged Out No longer eligi ble based on patient's age to complete this topic MENINGOCOCCAL (MENACTRA/MENVEO) Aged Out No longer eligible based on patient's age to complete this topic Sigmoidoscopy Discontinued documented as of this encounter Medical Devices Implanted Type Area [employer] Restaurant Device Identifier Shelf Expiration Date Model / Serial / Lot Lens Intraoc 10.5 - [id number] - [id number] Implanted:Qty: 1 on 09/29/2020 by Ramón Taylor MD at OR [facility] Right: Eye [employer] 11/25/2020 [id number] / [id number] / Lens Intraoc 11.5 - [id number] - [id number] Implanted:Qty: 1 on 10/06/2020 by Ramón Taylor MD at OR [facility] Left: Eye [employer] 07/27/2021 [id number] / [id number] / [id number] documented as of this encounter Visit Diagnoses Diagnosis HTN, goal below 140/90 Unspecified essential hypertension documented in this encounter Care Teams Hose Handler Relationship Specialty Start Date End Date Mariluz Peace MD [address] [facility] [place], [place] [address] PCP - General Internal Medicine 06/28/18 documented as of this encounter
--- OUTSIDE RECORDS SUMMARY | 2023-09-02 07:00 | External Medical Summary | Summary of Care ---
Author Name Unknown Organization [facility] Address [address] [place] [address] Phone [phone] Care Team Providers Care Poultry Husbandman Name Role Phone Mariluz Peace MD Primary Care Provider [phone] Reason for Visit * Reason Onset Date Comments eRx-Medication Refill Appointment 04/13/2023 Encounter Details Date Type Department Care Team Description 04/13/2023 Refill General Internal Medicine [facility] 200 [facility] [place], [place] [phone] Mariluz Peace MD 200 [place], [place] [phone] Dyslipidemia, goal LDL below 100 Allergies Active Allergy Reactions Severity Noted Date Comments Alendronate Nausea/vomiting Low 09/29/2022 Lightheadedness, muscle aches, jaw pain documented as of this encounter (statuses as of 04/19/2023) Medications Medication Sig Dispensed Refills Start Date [...] /d 12/08/2021. 100 Tablet 5 12/08/2021 Active Levothyroxine Sodium 75 MCG Oral Tablet (Levoxyl)Indications :Acquired hypothyroidism TAKE ONE TABLET BY MOUTH EVERY DAY FIRST THING IN THE MORNING 90 Tablet 3 05/12/2022 Active Acetaminophen 500 MG Oral Tablet (Tylenol)Indications :Generalized osteoarthritis of multiple sites Take 2 Tablets (1,000 mg) by mouth 3 times a day as needed for Pain, Moderate. 100 Tablet 0 07/11/2022 Active amLODIPine Besy-Benazepril HCl 5-10 MG Oral Capsule (Lotrel)Indications: HTN, goal below 140/90 TAKE 1 CAPSULE BY MOUTH EVERY DAY 90 Capsule 2 10/13/2022 Active Rosuvastatin Calcium 40 MG Oral Tablet (Crestor)Indications :Dyslipidemia, goal LDL below 100 TAKE 1 TABLET BY MOUTH DAILY IN THE EVENING 90 Tablet 1 04/14/2023 Active Rosuvastatin Calcium 40 MG Oral Tablet (Crestor)Indications :Dyslipidemia, goal LDL below 100 TAKE 1 TAB BY MOUTH DAILY IN THE EVENING 90 Tablet 3 04/12/2022 3 Discontinued documented as of this encounter (statuses as of 04/19/2023) Active Problems Problem Noted Date Chronic kidney disease, stage 3b 023 Overview: Per CKD protocol Age-related osteoporosis without current pathological fracture 01/11/2022 Overview: 01/16--2.7/-2.1--HR (having Rt Knee meniscal repair soon)--chandan f/u Prediabetes 07/06/2020 Overview: Per Prediabetes protocol History of fracture of left ankle 2018 Overview: 2001 --Trimall frac--sp ORIF Encounter for screening mammogram for br east cancer 11/08/2018 Overview: Mammo neg 07/15;11/15 Pap smear for cervical cancer screening 11/08/2018 Overview: Arielle--pap neg 05/2014 Screen for colon cancer 11/08/2018 Overview: Never had csope, will do cologuard. Screening for osteoporosis 11/08/2018 Overview: 11/13-defers dexa>09/16-willing to chandan Dyslipidemia, goal LDL below 100 019 Essential hypertension with goal blood p ressure less than 140/90 02/03/2016 Acquired hypothyroidism 01/12/2016 Left bundle branch block 06/23/2011 Overview: Known hx since 2004 with echo in 2004>>>06/10-stress echo neg Localized, primary osteoarthritis of ank le or foot 02/04/2009 documented as of this encounter (statuses as of 04/19/2023) Resolved Problems Problem Noted Date Resolved Date Chronic kidney disease, stage 3a 07/11/2022 01/04/2023 Overview: Per CKD protocol Elevated liver enzymes 12/24/2009 4 Dyslipidemia, goal to be determined 08/06/2009 06/23/2011 Overview: Per Lipid Taxonomy. Esophageal reflux 02/04/2009 11/08/2018 HTN, goal below 140/90 02/04/2009 6 HYPOTHYROIDISM NOS 02/04/2009 01/12/2016 Mixed dyslipidemia 02/04/2009 08/06/2009 Overview: Per Lipid Taxonomy. documented as of this encounter (statuses as of 04/19/2023) Immunizations Name Administration Dates Next Due COVID-19 mRNA, LNP-s, No Pre serve, 2-Dose Series (Pfizer) 09/20/2021,12/29/2020,12/08/2020 Pneumococcal Conjugate Vacc, 13 Valent (Prevnar) 02/03/2016 Pneumococcal Polysaccharide PPV23 (Pneumovax) 06/12/2014 Seasonal Influenza, PF, 6 mo ns & Above, IM , (Flulaval) 08/06/2018 Seasonal Influenza, Quadriva lent Hd (Fluzone [...] drink = 0.6 oz pur e alcohol) Sex Assigned at Date Recorded Not on file Job Start Date Occupation Industry Not on file Not on file Not on file documented as of this encounter Miscellaneous Notes * Telephone Encounter - YADIEL Linares - 04/19/2023 10:53 AM EDT Letter sent, 3rd att 04/19 JAT * Telephone Encounter - YADIEL Linares - 04/17/2023 9:10 AM EDT MyG message sent, 2nd att 04/17 JAT * Telephone Encounter - YADIEL Linares - 04/14/2023 9:10 AM EDT LMOM re: appt 04/14 JAT * Telephone Encounter - Mariluz Peace MD - 04/14/2023 8:27 AM EDTSigned Prescriptions: Disp Refills Rosuvastatin Calcium 40 MG Oral Tablet (Cr*90 Tab*1 Sig: TAKE 1 TABLET BY MOUTH DAILY IN THE EVENING Authorizing Provider: MARILUZ PEACE * Telephone Encounter - Mariluz Peace MD - 04/14/2023 8:[address] chandan f/u in jun * Telephone Encounter - Nelda Campa [facility] - 04/14/2023 7:45 AM EDTPending Prescriptions: Disp Refills Rosuvastatin Calcium 40 MG Oral Tablet [Ph*90 Tab*2 Sig: TAKE 1 TABLET BY MOUTH DAILY IN THE EVENING Electronically signed by Nelda Campa [facility] at 04/14/2023 7:45 AM EDT * Telephone Encounter - Nelda Campa [facility] - 04/14/2023 7:44 AM EDT Last creatinine was a little elevated which lowered CrCl to below 30. Would recommend repeating BMPbefore decreasing Crestor dose. Please advise. Serum creatinine: 1.5 mg/dL (H) 12/22/22 0732 Estimated creatinine clearance: 27.7 mL/min (A) Uptodate: CrCl <30 mL/minute/1.73 m2: 5 to 10 mg once daily. Electronically signed by Nelda Campa [facility] at 04/14/2023 7:45 AM EDT documented in this encounter Plan of Treatment Health Maintenance Due Date Last Done Comments Zoster Vaccines (3 of 3) 12/19/2019 10/24/2019, 10/28 COVID-19 Vaccine (4 - Pfizer series) 11/15/2021 09/20/2021, 12/29/2020, 12/08/2020 DTaP,Tdap,and Td Vaccines (3 - Td or Tdap) 06/26/2022 06/26/2012, 08/28/2001 *BISPHONATE OR OTHER ACCEPTABLE MEDICATION NEEDED FOR OSTEOPOROSIS (REFER TO SMARTSET #1146) 10/01/2022 Influenza Vaccine (FLU shot) (#1) 2023 07/11/2022, 06/21/2020, 07/07/2019, Additional history exists GFR 06/23/2023 12/22/2022, 110 03/2022, 01/12/2022, Additional history exists Albumin/Creatinine Ratio 12/23/2023 023, 07/05/2022, 01/06/2022, Additional history exists CKD HGB USE SMARTSET 76312 12/23/202312/22, 12/22/2022, 01/12/2022, Additional history exists CKD PHOS USE SMARTSET 37727 12/23/2023 12/22/2022 HbA1c 12/23/2023 12/22/2022, 11/0 03/2022, 12/01/2021, Additional history exists TSH 12/23/2023 12/22/2022, 110 03/2022, 01/06/2022, Additional history exists Depression Screening, Annual for Pts 12 and Over 12/30/2023 12/29/2022 DXA Scan 01/05/2024 01/04/2022 Pneumococcal Vaccine: 65+ Years Completed 02/03/2016, 06/12/2014 Cologuard Discontinued 09/12/2019 Colorectal Cancer Screening Discontinued VITAMIN D LEVEL ONCE IN A LIFETIME-USE SMARTSET# 01468 Completed 07/11/2022 Colonoscopy Discontinued Fecal Occult Blood [...] this encounter Medical Devices Implanted Type Area Supervisor Prep Device Identifier Shelf Expiration Date Model / Serial / Lot Lens Intraoc 10.5 - [id number] - [id number] Implanted:Qty: 1 on 09/29/2020 by Ramón Taylor MD at OR [facility] Right: Eye [employer]OM[employer] 11/25/2020 [id number] / [id number] / Lens Intraoc 11.5 - [id number] - [id number] Implanted:Qty: 1 on 10/06/2020 by Ramón Taylor MD at OR [facility] Left: Eye BAUSCH [employer] LOMB 07/27/2021 [id number] / [id number] / [id number] documented as of this encounter Visit Diagnoses Diagnosis Dyslipidemia, goal LDL below 100 Other and unspecified hyperlipidemia documented in this encounter Care Teams Poultry Husbandman Relationship Specialty Start Date End Date Mariluz Peace MD [address] [place] [id number] PCP - General Internal Medicine 06/28/18 documented as of this encounter
--- OUTSIDE RECORDS SUMMARY | 2023-09-02 07:00 | External Medical Summary | Summary of Care ---
Author Name Unknown Organization [facility] Address [address] [place] [address] Phone [phone] Care Team Providers Care [employer]et [employer] Name Role Phone Mariluz Peace MD Primary Care Provider Reason for Visit * Reason Comments eRx-Medication Refill Encounter Details Date Type Department Care Team (Late st Contact Info) Description 08/03/2023 Refill General Internal Medicine [facility] [address] [place] [address] Mariluz Peace MD 200 [place] [address] HTN, goal below 140/90 Allergies Active Allergy Reactions Criticality Noted Date Comments Alendronate Nausea/vomiting Low 09/29/2022 Lightheadedness, muscle aches, jaw pain documented as of this encounter (statuses as of 08/03/2023) Medications Medication Sig Dispensed Refills Start Date [...] MG Oral Tablet Delayed Release (Ecotrin Low Strength)Indications:E ssential hypertension with goal blood pressure less than 140/90,Dyslipidemia, goal LDL below 100,Left bundle branch block Take by mouth 1 Tablet in the morning. Inc back to /d 12/08/2021. 100 Tablet 5 12/08/2021 Active Acetaminophen 500 MG Oral Tablet (Tylenol)Indications:G eneralized osteoarthritis of multiple sites Take 2 Tablets (1,000 mg) by mouth 3 times a day as needed for Pain, Moderate. 100 Tablet 0 07/11/2022 Active Rosuvastatin Calcium 40 MG Oral Tablet (Crestor)Indications:D yslipidemia, goal LDL below 100 TAKE 1 TABLET BY MOUTH DAILY IN THE EVENING 90 Tablet 1 04/14/2023 Active Levothyroxine Sodium 75 MCG Oral Tablet (Levoxyl)Indications:A cquired hypothyroidism TAKE ONE TABLET BY MOUTH EVERY DAY FIRST THING IN THE MORNING 90 Tablet 2 05/05/2023 Active amLODIPine Besy-Benazepril HCl 5-10 MG Oral Capsule (Lotrel)Indications:HT N, goal below 140/90 TAKE 1 CAPSULE BY MOUTH EVERY DAY 90 Capsule 1 08/02/2023 Active documented as of this encounter (statuses as of 08/03/2023) Active Problems Problem Noted Date Diagnosed Date Chronic kidney disease, stage 3b 01/02/2023 Overview: Per CKD protocol Age-related osteoporosis wit hout current pathological fracture 01/11/2022 Overview: 01/16--2.7/-2.1--HR (having Rt Knee meniscal repair soon)--chandan f/u Prediabetes 07/06/2020 Overview: Per Prediabetes protocol History of fracture of left ankle 11/08/2018 Overview: 2001 --Neo frac--sp ORIF Encounter for screening mammogram for breast can cer 11/08/2018 Overview: Mammo neg 07/15;11/15 Pap smear for cervical cancer screening 11/09/19 19 Overview: Arielle--pap neg 05/2014 Screen for colon [...] as of this encounter (statuses as of 08/03/2023) Resolved Problems Problem Noted Date Diagnosed Date [...] as of this encounter (statuses as of 08/03/2023) Immunizations Name Administration Dates Next Due COVID-19 mRNA, LNP-s, No Pre serve, 2-Dose Series ([employer]) 09/20/2021,12/29/2020,12/08/2020 Pneumococcal Conjugate Vacc, 13 Valent (Prevnar) [...] encounter Miscellaneous Notes * Telephone Encounter - Booker Moreno RPh - 08/03/2023 2:53 PM ESTRefused Prescriptions: Disp Refills amLODIPine Besy-Benazepril HCl 5-10 MG Ora*90 Cap*2 Sig: TAKE 1CAPSULE BY MOUTH EVERY DAYRefused By: BOOKER MORENONReason for Refusal: Duplicate Request------ documented in this encounter Plan of Treatment Upcoming Encounters Date Type Department Care Team (Late st Contact Info) Description 09/11/2023 11:20 AM EST Office Visit General Internal Medicine [facility] [place] [address] [place] [address] Mariluz Peace MD [address] [place], [place] [address] Health Maintenance Due Date Last Done Comments Zoster Vaccines (3 of 3) 12/19/2019 10/24/2019, 10/28 DTaP,Tdap,and Td Vaccines (3 - Td or Tdap) 06/26/2022 06/26/2012, 08/28/2001 *BISPHONATE OR OTHER ACCEPTABLE MEDICATION NEEDED FOR OSTEOPOROSIS (REFER TO SMARTSET #1146) 10/01/2022 COVID-19 Vaccine ( - season) 2023 09/20/2021, 12/29/2020, 12/08/2020 Influenza Vaccine (FLU shot) (#1) 2023 07/11/2022, 06/21/2020, 07/07/2019, Additional history exists GFR 06/23/2023 12/22/2022, 110 03/2022, 01/12/2022, Additional history exists Albumin/Creatinine Ratio 12/23/2023 023, 07/05/2022, 01/06/2022, Additional history exists CKD HGB USE SMARTSET 45226 12/23/202312/22, 12/22/2022, 01/12/2022, Additional history exists CKD PHOS USE SMARTSET 73210 12/23/2023 12/22/2022 HbA1c 12/23/2023 12/22/2022, 11/0 03/2022, 12/01/2021, Additional history exists TSH 12/23/2023 12/22/2022, 110 03/2022, 01/06/2022, Additional history exists Depression Screening 12/30/2023 12/29/2022 DXA Scan 01/05/2024 01/04/2022 Pneumococcal Vaccine: 65+ Years Completed 02/03/2016, 06/12/2014 Cologuard Discontinued 09/12/2019 Colorectal Cancer Screening Discontinued VITAMIN D LEVEL ONCE IN A LIFETIME-USE SMARTSET# 86701 Completed 07/11/2022 Colonoscopy Discontinued Fecal Occult Blood [...] this encounter Medical Devices Implanted Type Area Marine Diesel Mechanic Device Identifier Shelf Expiration Date Model / Serial / Lot Lens Intraoc 10.5 - [id number] - [id number] Implanted:Qty: 1 on 09/29/2020 by Ramón Taylor MD at OR [facility] Right: Eye [employer]CH [employer]OM[employer] 11/25/2020 [id number] / [id number] / Lens Intraoc 11.5 - [id number] - [id number] Implanted:Qty: 1 on 10/06/2020 by Ramón Taylor MD at OR [facility] Left: Eye BA[employer]CH [employer]OMB 07/27/2021 [id number] / [id number] / [id number] documented as of this encounter Visit Diagnoses Diagnosis HTN, goal below 140/90 Unspecified essential hypertension documented in this encounter Care Teams [employer] Relationship Specialty Start Date End Date Mariluz Peace MD [address] [place] [address] PCP - General Internal Medicine 06/28/18 documented as of this encounter
--- OUTSIDE RECORDS SUMMARY | 2023-09-02 07:00 | External Medical Summary | Summary of Care ---
Author Name Unknown Organization [facility] Address [address] [place] [address] Phone [phone] Care Team Providers Care Casing Material Weigher Name Role Phone Mariluz Peace MD Primary Care Provider [phone] Reason for Visit * Reason Comments eRx-Medication Refill Encounter Details Date Type Department Care Team (Late st Contact Info) Description 08/03/2023 Refill General Internal Medicine [facility] 200 [place] [address] Mariluz Peace MD [address] [place] [address] HTN, goal below 140/90 Allergies Active Allergy Reactions Criticality Noted Date Comments Alendronate Nausea/vomiting Low 09/29/2022 Lightheadedness, muscle aches, jaw pain documented as of this encounter (statuses as of 08/07/2023) Medications Medication Sig Dispensed Refills Start Date [...] as of this encounter (statuses as of 08/07/2023) Active Problems Problem Noted Date Diagnosed Date [...] as of this encounter (statuses as of 08/07/2023) Resolved Problems Problem Noted Date Diagnosed Date [...] as of this encounter (statuses as of 08/07/2023) Immunizations Name Administration Dates Next Due COVID-19 mRNA, LNP-s, No Pre serve, 2-Dose Series ([employer]) 09/20/2021,12/29/2020,12/08/2020 Pneumococcal Conjugate Vacc, 13 Valent (Prevnar) [...] as of this encounter Miscellaneous Notes * Addendum Note - Matty Balderas CPhT - 08/07/2023 10:27 AM ESTAddended by: MATTY BALDERAS on: 08/07/2023 10:27 AM Modules accepted: Orders * Telephone Encounter - Matty Balderas CPhT - 08/07/2023 10:24 AM EST Please reroute Rx to [id number] [address] [facility]. Pharmacy was not able to transfer rx from [place] Pending Prescriptions: Disp Refills amLODIPine Besy-Benazepril HCl 5-10 MG Or*90 Cap*1 Sig: Take 1 Capsule by mouth in the morning. Last Visit: 12/29/2022 (in office), Visit date not found (telemedicine) 09/11/2023 If no future appointments scheduled, and last appointment is greater than a year ago, please schedule patient for a follow-up appointment Last date the medication was ordered: [id number] Patient Phone Numbers Labs: Lab Results Component Value Date/Time CREAT 1.5 (H) 12/22/2022 07:32 AM CREAT 1.05 01/12/2022 12:00 AM CREAT 0.9 09/17/2020 07:20 AM POTASSIUM 4.5 12/22/2022 07:32 AM POTASSIUM 4.0 01/12/2022 12:00 AM POTASSIUM 4.6 09/17/2020 07:20 AM TSH 1.86 12/22/2022 07:32 AM TSH 0.68 03/23/2021 12:00 AM TSH 0.08 (L) 09/17/2020 07:20 AM TSH 4.24 09/19/1996 01:20 PM LDLCALC 45 12/22/2022 07:32 AM LDLCALC 47 09/17/2020 07:20 AM LDLDIRECT 46 12/01/2021 07:39 AM LDLDIRECT NOT APPLICABLE 09/17/2020 07:20 AM LDLDIRECT 170 (H) 01/26/2008 09:45 AM ALT 22 12/22/2022 07:32 AM ALT 19 09/17/2020 07:20 AM HGBA1C 5.7 (H) 12/22/2022 07:32 AM HGBA1C 5.9 (H) 09/17/2020 07:20 AM * Telephone Encounter - Booker [facility] - 08/03/2023 2:53 PM ESTRefused Prescriptions: Disp Refills amLODIPine Besy-Benazepril HCl 5-10 MG Ora*90 Cap*2 Sig: TAKE 1CAPSULE BY MOUTH EVERY DAYRefused By: BOOKER MUSAeason for Refusal: Duplicate Request------ documented in this encounter Plan of Treatment Upcoming Encounters Date Type Department Care Team (Late st Contact Info) Description 09/11/2023 11:20 AM EST Office Visit General Internal Medicine [place] [facility] [address] [facility] [place] [address] Mariluz Peace MD 200 [facility] [place] [address] Health Maintenance Due Date Last Done Comments Zoster Vaccines (3 of 3) 12/19/2019 10/24/2019, 10/28 DTaP,Tdap,and Td Vaccines (3 - Td or Tdap) 06/26/2022 06/26/2012, 08/28/2001 *BISPHONATE OR OTHER ACCEPTABLE MEDICATION NEEDED FOR OSTEOPOROSIS (REFER TO SMARTSET #1146) 10/01/2022 COVID-19 Vaccine ( season) 2023 09/20/2021, 12/29/2020, 12/08/2020 Influenza Vaccine (FLU shot) (#1) 2023 07/11/2022, 06/21/2020, 07/07/2019, Additional history exists GFR 06/23/2023 12/22/2022, 03/2022, 01/12/2022, Additional history exists Albumin/Creatinine Ratio 12/23/202312/22/2 023, 07/05/2022, 01/06/2022, Additional history exists CKD HGB USE SMARTSET 76609 12/23/202312/22, 12/22/2022, 01/12/2022, Additional history exists CKD PHOS USE SMARTSET 36678 12/23/2023 12/22/2022 HbA1c 12/23/2023 12/22/2022, 03/2022, 12/01/2021, Additional history exists TSH 12/23/2023 12/22/2022, 03/2022, 01/06/2022, Additional history exists Depression Screening 12/30/2023 12/29/2022 DXA Scan 01/05/2024 01/04/2022 Pneumococcal Vaccine: 65+ Years Completed 02/03/2016, 06/12/2014 Cologuard Discontinued 09/12/2019 Colorectal Cancer Screening Discontinued VITAMIN D LEVEL ONCE IN A LIFETIME-USE SMARTSET# 93347 Completed 07/11/2022 Colonoscopy Discontinued Fecal Occult Blood [...] this encounter Medical Devices Implanted Type Area Crm Coordinator Device Identifier Shelf Expiration Date Model / Serial / Lot Lens Intraoc 10.5 - [id number] - [id number] Implanted:Qty: 1 on 09/29/2020 by Ramón Taylor MD at OR [facility] Right: Eye [employer]CH [employer]OM[employer] 11/25/2020 [id number] / [id number] / Lens Intraoc 11.5 - [id number] - [id number] Implanted:Qty: 1 on 10/06/2020 by Ramón Taylor MD at OR [facility] Left: Eye BAUSCH [employer] LOMB 07/27/2021 [id number] / [id number] documented as of this encounter Visit Diagnoses Diagnosis HTN, goal below 140/90 Unspecified essential hypertension documented in this encounter Care Teams Casing Material Weigher Relationship Specialty Start Date End Date Mariluz Peace MD [address] [place] [id number] PCP - General Internal Medicine 06/28/18 documented as of this encounter
--- OUTSIDE RECORDS SUMMARY | 2023-09-02 07:00 | External Medical Summary | Summary of Care ---
Author Name Unknown Organization [facility] Address [address] [place] [address] Phone [phone] Care Team Providers Care Replacer Name Role Phone Mariluz Peace MD Primary Care Provider [phone] Reason for Visit * Reason Onset Date Comments Medication Refill 08/10/2023 Encounter Details Date Type Department Care Team (Late st Contact Info) Description 08/10/2023 Refill General Internal Medicine [facility] [address] [place] [address] Mariluz Peace MD [address] [place] [address] Allergies Active Allergy Reactions Criticality Noted Date Comments Alendronate Nausea/vomiting Low 09/29/2022 Lightheadedness, muscle aches, jaw pain documented as of this encounter (statuses as of 08/16/2023) Medications Medication Sig Dispensed Refills Start Date [...] Oral Capsule (Lotrel)Indications:HT N, goal below 140/90 Take 1 Capsule by mouth in the morning. 90 Capsule 1 08/07/2023 Active documented as of this encounter (statuses as of 08/16/2023) Active Problems Problem Noted Date Diagnosed Date [...] as of this encounter (statuses as of 08/16/2023) Resolved Problems Problem Noted Date Diagnosed Date [...] as of this encounter (statuses as of 08/16/2023) Immunizations Name Administration Dates Next Due COVID-19 mRNA, LNP-s, No Pre serve, 2-Dose Series ([employer]) 09/20/2021,12/29/2020,12/08/2020 Pneumococcal Conjugate Vacc, 13 Valent (Prevnar) 02/03/2016 Pneumococcal Polysaccharide PPV23 (Pneumovax) 06/12/2014 Seasonal Influenza, PF, 6 M & above, IM , (FluLaval or Fluzone) 08/06/2018 Seasonal Influenza, Quadriva lent Hd (Fluzone [...] on file documented as of this encounter Plan of Treatment Upcoming Encounters Date Type Department Care Team (Late st Contact Info) Description 09/11/2023 11:20 AM EST Office Visit General Internal Medicine [facility] [address] [facility] [place] [address] Mariluz Peace MD 200 [place] [address] Health Maintenance Due Date Last Done Comments Zoster Vaccines (3 of 3) 12/19/2019 10/24/2019, 10/28 DTaP,Tdap,and Td Vaccines (3 - Td or Tdap) 06/26/2022 06/26/2012, 08/28/2001 *BISPHONATE OR OTHER ACCEPTABLE MEDICATION NEEDED FOR OSTEOPOROSIS (REFER TO SMARTSET #1146) 10/01/2022 COVID-19 Vaccine ( - season) 2023 09/20/2021, 12/29/2020, 12/08/2020 Influenza Vaccine (FLU shot) (#1) 2023 07/11/2022, 06/21/2020, 07/07/2019, Additional history exists GFR 06/23/2023 12/22/2022, 11/0 03/2022, 01/12/2022, Additional history exists Albumin/Creatinine Ratio 12/23/2023 023, 07/05/2022, 01/06/2022, Additional history exists CKD HGB USE SMARTSET 54959 12/23/202312/22, 12/22/2022, 01/12/2022, Additional history exists CKD PHOS USE SMARTSET 80215 12/23/2023 12/22/2022 HbA1c 12/23/2023 12/22/2022, 11/0 03/2022, 12/01/2021, Additional history exists TSH 12/23/2023 12/22/2022, 11/0 03/2022, 01/06/2022, Additional history exists Depression Screening 12/30/2023 12/29/2022 DXA Scan 01/05/2024 01/04/2022 Pneumococcal Vaccine: 65+ Years Completed 02/03/2016, 06/12/2014 Cologuard Discontinued 09/12/2019 Colorectal Cancer Screening Discontinued VITAMIN D LEVEL ONCE IN A LIFETIME-USE SMARTSET# 25576 Completed 07/11/2022 Colonoscopy Discontinued Fecal Occult Blood [...] this encounter Medical Devices Implanted Type Area Whey Department Operator Device Identifier Shelf Expiration Date Model / Serial / Lot Lens Intraoc 10.5 - [id number] - [id number] Implanted:Qty: 1 on 09/29/2020 by Ramón Taylor MD at OR [facility] Right: Eye [employer] 11/25/2020 [id number] / [id number] / Lens Intraoc 11.5 - [id number] - [id number] Implanted:Qty: 1 on 10/06/2020 by Ramón Taylor MD at OR [facility] Left: Eye [employer]OM[employer] 07/27/2021 [id number] / [id number] / [id number] documented as of this encounter Care Teams Replacer Relationship Specialty Start Date End Date Mariluz Peace MD 200 [place] [address] PCP - General Internal Medicine 06/28/18 documented as of this encounter
--- OUTSIDE RECORDS SUMMARY | 2023-09-02 07:00 | External Medical Summary | Summary of Care ---
Author Name Unknown Organization [facility] Address [address] [place] [address] Phone [phone] Care Team Providers Care [facility] Name Role Phone Mariluz Peace MD Primary Care Provider [phone] Reason for Visit * Reason Onset Date Comments eRx-Medication Refill Appointment 04/13/2023 Encounter Details Date Type Department Care Team Description 04/13/2023 Refill General Internal Medicine [facility] 200 [facility] [place], [place] [phone] Mariluz Peace MD [address] [place], [place] [phone] Dyslipidemia, goal LDL below 100 Allergies Active Allergy Reactions Severity Noted Date Comments Alendronate Nausea/vomiting Low 09/29/2022 Lightheadedness, muscle aches, jaw pain documented as of this encounter (statuses as of 04/17/2023) Medications Medication Sig Dispensed Refills Start Date [...] as of this encounter (statuses as of 04/17/2023) Active Problems Problem Noted Date Chronic kidney [...] as of this encounter (statuses as of 04/17/2023) Resolved Problems Problem Noted Date Resolved Date [...] as of this encounter (statuses as of 04/17/2023) Immunizations Name Administration Dates Next Due COVID-19 [...] 8:[address] chandan f/u in nov * Telephone Encounter - Nelda Campa [facility] - 04/14/2023 7:45 AM EDTPending Prescriptions: Disp Refills Rosuvastatin Calcium 40 MG Oral Tablet [Ph*90 Tab*2 Sig: TAKE 1 TABLET BY MOUTH DAILY IN THE EVENING * Telephone Encounter - Nelda Campa [facility] - 04/14/2023 7:44 AM EDT Last creatinine was a little elevated which lowered CrCl to below 30. Would recommend repeating BMPbefore decreasing Crestor dose. Please advise. Serum creatinine: 1.5 mg/dL (H) 12/22/22 0732 Estimated creatinine clearance: 27.7 mL/min (A) Uptodate: CrCl <30 mL/minute/1.73 m2: 5 to 10 mg once daily. documented in this encounter Plan of Treatment [...] Additional history exists CKD HGB USE SMARTSET 01440 12/23/202312/22, 12/22/2022, 01/12/2022, Additional history exists CKD PHOS USE SMARTSET 87998 12/23/2023 12/22/2022 HbA1c 12/23/2023 12/22/2022, 11/0 03/2022, 12/01/2021, Additional history exists TSH 12/23/2023 12/22/2022, 11/0 03/2022, 01/06/2022, Additional history exists Depression Screening, Annual for Pts 12 and Over 12/30/2023 12/29/2022 DXA Scan 01/05/2024 01/04/2022 Pneumococcal Vaccine: 65+ Years Completed 02/03/2016, 06/12/2014 Cologuard Discontinued 09/12/2019 Colorectal Cancer Screening Discontinued VITAMIN D LEVEL ONCE IN A LIFETIME-USE SMARTSET# 14996 Completed 07/11/2022 Colonoscopy Discontinued Fecal Occult Blood [...] this encounter Medical Devices Implanted Type Area Journalist Device Identifier Shelf Expiration Date Model / Serial / Lot Lens Intraoc 10.5 - [id number] - [id number] Implanted:Qty: 1 on 09/29/2020 by Ramón Taylor MD at OR [facility] Right: Eye [employer]CH [employer] LOMB 11/25/2020 [id number] / [id number] / Lens Intraoc 11.5 - [id number] - [id number] Implanted:Qty: 1 on 10/06/2020 by Ramón Taylor MD at OR [facility] Left: Eye BAUSCH & LOMB 07/27/2021 [id number] / [id number] / [id number] documented as of this encounter Visit Diagnoses Diagnosis Dyslipidemia, goal LDL below 100 Other and unspecified hyperlipidemia documented in this encounter Care Teams [facility] Relationship Specialty Start Date End Date Mariluz Peace MD [address] [place] [address], [place] [address] PCP - General Internal Medicine 06/28/18 documented as of this encounter
--- OUTSIDE RECORDS SUMMARY | 2023-09-02 07:00 | External Medical Summary | Summary of Care ---
Author Name Unknown Organization [facility] Address [address] [place] [address] Phone [phone] Care Team Providers Care Machine Design Engineer Name Role Phone Mariluz Peace MD Primary Care Provider Reason for Visit * Reason Onset Date Comments Health Maintenance 07/18/2023 Encounter Details Date Type Department Care Team (Late st Contact Info) Description 07/18/2023 Telephone General Internal Medicine [facility] 200 [facility] [place] [address] Mariluz Peace MD [address] [place], [place] [phone] Health Maintenance Allergies Active Allergy Reactions Criticality Noted Date Comments Alendronate Nausea/vomiting Low 09/29/2022 Lightheadedness, muscle aches, jaw pain documented as of this encounter (statuses as of 07/18/2023) Medications Medication Sig Dispensed Refills Start Date [...] THE MORNING 90 Tablet 2 05/05/2023 Active documented as of this encounter (statuses as of 07/18/2023) Active Problems Problem Noted Date Diagnosed Date [...] as of this encounter (statuses as of 07/18/2023) Resolved Problems Problem Noted Date Diagnosed Date [...] as of this encounter (statuses as of 07/18/2023) Immunizations Name Administration Dates Next Due COVID-19 mRNA, LNP-s, No Pre serve, 2-Dose Series ([employer]) 09/20/2021,12/29/2020,12/08/2020 Pneumococcal Conjugate Vacc, 13 Valent (Prevnar) [...] encounter Miscellaneous Notes * Telephone Encounter - Maria D Mi LPN - 07/18/2023 10:05 AM EST Care Gaps Comprehensive Care Outreach Last Office/Telemedicine Visit: 12/29/2022 (in office), Visit date not found (telemedicine) Next Office Visit: 08/10/2023 Hemoglobin AIC Results: Lab Results Component Value Date/Time HEMOGLOBIN A1C - [facility] 5.7 (H) 12/22/2022 07:32 AM HEMOGLOBIN A1C - [facility] 5.8 (H) 07/05/2022 07:42 AM HEMOGLOBIN A1C - [facility] 5.7 (H) 12/01/2021 07:39 AM HEMOGLOBIN A1C - [facility] 5.9 (H) 09/17/2020 07:20 AM HEMOGLOBIN A1C - [facility] 5.8 (H) 06/24/2020 07:31 AM Reviewed Health Maintenance below: Health Maintenance Topic Date Due Zoster Vaccines (3 of 3) 12/19/2019 DTaP,Tdap,and Td Vaccines (3 - Td or Tdap) 06/26/2022 *BISPHONATE OR OTHER ACCEPTABLE MEDICATION NEEDED FOR OSTEOPOROSIS (REFER TO SMARTSET #1146) Never done Influenza Vaccine (FLU shot) (1) 04/28/2023 COVID-19 Vaccine ( season) 2023 GFR 06/23/2023 Labs already ordered Care Gap Outreach Action Taken: Outreach not indicated documented in this encounter Plan of Treatment Upcoming Encounters Date Type Department Care Team (Late st Contact Info) Description 08/10/2023 8:20 AM EST Office Visit General Internal Medicine [facility] [place] 200 [facility] [place] [address] [facility]iluz [facility] MD [facility] [address] Health Maintenance Due Date Last Done Comments [...] 03/2022, 01/12/2022, Additional history exists Albumin/Creatinine Ratio 12/23/20232 023, 07/05/2022, 01/06/2022, Additional history exists CKD HGB USE SMARTSET 22291 12/23/202312/22, 12/22/2022, 01/12/2022, Additional history exists CKD PHOS USE SMARTSET 95399 12/23/2023 12/22/2022 HbA1c 12/23/2023 12/22/2022, 11/0 03/2022, 12/01/2021, Additional history exists TSH 12/23/2023 12/22/2022, 11/0 03/2022, 01/06/2022, Additional history exists Depression Screening 12/30/2023 12/29/2022 DXA Scan 01/05/2024 01/04/2022 Pneumococcal Vaccine: 65+ Years Completed 02/03/2016, 06/12/2014 Cologuard Discontinued 09/12/2019 Colorectal Cancer Screening Discontinued VITAMIN D LEVEL ONCE IN A LIFETIME-USE SMARTSET# 69673 Completed 07/11/2022 Colonoscopy Discontinued Fecal Occult Blood [...] this encounter Medical Devices Implanted Type Area Bed Spring Maker Device Identifier Shelf Expiration Date Model / Serial / Lot Lens Intraoc 10.5 - [id number] - [id number] Implanted:Qty: 1 on 09/29/2020 by Ramón Taylor MD at OR [facility] Right: Eye [employer]CH [employer] LOMB 11/25/2020 [id number] / [id number] / Lens Intraoc 11.5 - [id number] - [id number] Implanted:Qty: 1 on 10/06/2020 by Ramón Taylor MD at OR [facility] Left: Eye [employer]USCH [employer] LOMB 07/27/2021 [id number] / [id number] / [id number] documented as of this encounter Care Teams Machine Design Engineer Relationship Specialty Start Date End Date Mariluz Peace MD 200 [facility] [place] [address] PCP - General Internal Medicine 06/28/18 documented as of this encounter
--- OUTSIDE RECORDS SUMMARY | 2023-09-02 07:00 | External Medical Summary | Summary of Care ---
Author Name Unknown Organization [facility] Address [address] [place] [address] Phone [phone] Care Team Providers Care Ed Teacher Name Role Phone Mariluz Peace MD Primary Care Provider [phone] Reason for Visit * Reason Comments eRx-Medication Refill Encounter Details Date Type Department Care Team Description 05/04/2023 Refill General Internal Medicine [facility] 200 [facility] [address] Mariluz Peace MD [address] [place] [address] Acquired hypothyroidism Allergies Active Allergy Reactions Severity Noted Date Comments Alendronate Nausea/vomiting Low 09/29/2022 Lightheadedness, muscle aches, jaw pain documented as of this encounter (statuses as of 05/05/2023) Medications Medication Sig Dispensed Refills Start Date [...] THE MORNING 90 Tablet 2 05/05/2023 Active Levothyroxine Sodium 75 MCG Oral Tablet (Levoxyl)Indications :Acquired hypothyroidism TAKE ONE TABLET BY MOUTH EVERY DAY FIRST THING IN THE MORNING 90 Tablet 3 05/12/2022 3 Discontinued documented as of this encounter (statuses as of 05/05/2023) Active Problems Problem Noted Date Chronic kidney [...] as of this encounter (statuses as of 05/05/2023) Resolved Problems Problem Noted Date Resolved Date [...] as of this encounter (statuses as of 05/05/2023) Immunizations Name Administration Dates Next Due COVID-19 mRNA, LNP-s, No Pre serve, 2-Dose Series ([employer]) 09/20/2021,12/29/2020,12/08/2020 Pneumococcal Conjugate Vacc, 13 Valent (Prevnar) [...] Telephone Encounter - Booker Moreno RPh - 05/05/2023 9:57 AM EDTSigned Prescriptions: Disp Refills Levothyroxine Sodium 75 MCG Oral Tablet (L*90 Tab*2 Sig: TAKE ONE TABLET BY MOUTH EVERY DAY FIRST THING IN THE MORNINGAuthorizing Provider: Viridiana PEACE User: BOOKER MORENO documented in this encounter Plan of Treatment [...] Additional history exists CKD HGB USE SMARTSET 53328 12/23/202312/22, 12/22/2022, 01/12/2022, Additional history exists CKD PHOS USE SMARTSET 32647 12/23/2023 12/22/2022 HbA1c 12/23/2023 12/22/2022, 11/0 03/2022, 12/01/2021, Additional history exists TSH 12/23/2023 12/22/2022, 110 03/2022, 01/06/2022, Additional history exists Depression Screening 12/30/2023 12/29/2022 DXA Scan 01/05/2024 01/04/2022 Pneumococcal Vaccine: 65+ Years Completed 02/03/2016, 06/12/2014 Cologuard Discontinued 09/12/2019 Colorectal Cancer Screening Discontinued VITAMIN D LEVEL ONCE IN A LIFETIME-USE SMARTSET# 42651 Completed 07/11/2022 Colonoscopy Discontinued Fecal Occult Blood [...] this encounter Medical Devices Implanted Type Area Grain Elevator Clerk Device Identifier Shelf Expiration Date Model / Serial / Lot Lens Intraoc 10.5 - [id number] - [id number] Implanted:Qty: 1 on 09/29/2020 by Ramón Taylor MD at OR [facility] Right: Eye BAUSCH [employer] LOMB 11/25/2020 [id number] / [id number] / Lens Intraoc 11.5 - [id number] - [id number] Implanted:Qty: 1 on 10/06/2020 by Ramón Taylor MD at [facility] Left: Eye BAUSCH [employer] LOMB 07/27/2021 [id number] / [id number] / [id number] documented as of this encounter Visit Diagnoses Diagnosis Acquired hypothyroidism Unspecified hypothyroidism documented in this encounter Care Teams Ed Teacher Relationship Specialty Start Date End Date Mariluz Peace MD [address] [place] [address], [place] [address] PCP - General Internal Medicine 06/28/18 documented as of this encounter
--- OUTSIDE RECORDS SUMMARY | 2023-09-02 07:00 | External Medical Summary | Summary of Care ---
Author Name Unknown Organization [facility] Address [address] [place] [address] Phone [phone] Care Team Providers Care Drop Worker Name Role Phone Mariluz Peace MD Primary Care Provider [phone] Reason for Visit * Reason Comments eRx-Medication Refill Encounter Details Date Type Department Care Team (Late st Contact Info) Description 08/03/2023 Refill General Internal Medicine [facility] [address] [place] [address] Mariluz Peace MD 200 [place] [address] HTN, goal below 140/90 Allergies Active Allergy [...] Tablet in the morning. Inc back to 1/d 12/08/2021. 100 Tablet 5 12/08/2021 Active Acetaminophen [...] Oral Capsule (Lotrel)Indications: HTN, goal below 140/90 Take 1 Capsule by mouth in the morning. 90 Capsule 1 08/07/2023 Active amLODIPine Besy-Benazepril HCl 5-10 MG Oral Capsule (Lotrel)Indications: HTN, goal below 140/90 TAKE 1 CAPSULE BY MOUTH EVERY DAY 90 Capsule 1 08/02/2023 3 Discontinue d(Refill) documented as of this encounter (statuses as [...] mRNA, LNP-s, No Pre serve, 2-Dose Series ([employer]) 09/20/2021,12/29/2020,12/08/2020 Pneumococcal Conjugate Vacc, 13 Valent (Prevnar) [...] encounter Miscellaneous Notes * Telephone Encounter - Elyse Durbin [facility] - 08/07/2023 10:56 AM EST Signed Prescriptions: Disp Refills amLODIPine Besy-Benazepril HCl 5-10 MG Ora*90 Cap*1 Sig: Take 1 Capsule by mouth in the morning.Authorizing Provider: Viridiana PEACE User: ELYSE DURBIN Prescriptions: Disp Refills amLODIPine Besy-Benazepril HCl 5-10 MG Ora*90 Cap*2 Sig: TAKE 1 C APSULE BY MOUTH EVERY DAYRefused By: ERIN MUSA for Refusal: Duplicate Request * Addendum Note - Elyse Durbin RP - 08/07/2023 10:56 AM ESTAddended by: ELYSE DURBIN on: 08/07/2023 10:56 AM Modules accepted: Orders * Addendum Note - Matty Balderas CPhT - 08/07/2023 10:27 AM ESTAddended by: MATTY BALDERAS on: 08/07/2023 10:27 AM Modules accepted: Orders * Telephone Encounter - Matty Balderas CPhT - 08/07/2023 10:24 AM EST Please reroute Rx to [id number] [address] [facility]. Pharmacy was not able to transfer rx from [place] Pending Prescriptions: Disp Refills amLODIPine Besy-Benazepril HCl 5-10 MG Or*90 Cap*1 Sig: Take 1 Capsule by mouth in the morning. Last Visit: 12/29/2022 (in office), Visit date not found (telemedicine) 09/11/2023 If no future appointments scheduled, and last appointment is greater than a year ago, please schedule patient for a follow-up appointment Last date the medication was ordered: [id number] Patient Phone Numbers Labs: Lab Results Component [...] 09/17/2020 07:20 AM * Telephone Encounter - Erin Musa RP - 08/03/2023 2:53 PM ESTRefused Prescriptions: Disp Refills amLODIPine Besy-Benazepril HCl 5-10 MG Ora*90 Cap*2 Sig: TAKE 1CAPSULE BY MOUTH EVERY DAYRefused By: ERIN MUSAeason for Refusal: Duplicate Request------ documented in this encounter Plan of Treatment Upcoming Encounters Date Type Department Care Team (Late st Contact Info) Description 09/11/2023 11:20 AM EST Office Visit General Internal Medicine [facility] [facility] [address] [place], [place] [address] Mariluz Peace MD [address] [facility] [place], [place] [phone] Health Maintenance Due Date Last Done Comments Zoster Vaccines (3 of 3) 12/19/2019 10/24/2019, 03/08/2014 DTaP,Tdap,and Td Vaccines (3 - Td or [...] Additional history exists CKD HGB USE SMARTSET 91623 12/23/202312/22, 12/22/2022, 01/12/2022, Additional history exists CKD PHOS USE SMARTSET 27339 12/23/2023 12/22/2022 HbA1c 12/23/2023 12/22/2022, 11/0 03/2022, 12/01/2021, Additional history exists TSH 12/23/2023 12/22/2022, 110 03/2022, 01/06/2022, Additional history exists Depression Screening 12/30/2023 12/29/2022 DXA Scan 01/05/2024 01/04/2022 Pneumococcal Vaccine: 65+ Years Completed 02/03/2016, 06/12/2014 Cologuard Discontinued 09/12/2019 Colorectal Cancer Screening Discontinued VITAMIN D LEVEL ONCE IN A LIFETIME-USE SMARTSET# 62377 Completed 07/11/2022 Colonoscopy Discontinued Fecal Occult Blood [...] this encounter Medical Devices Implanted Type Area Flag Car Driver Device Identifier Shelf Expiration Date Model / Serial / Lot Lens Intraoc 10.5 - [id number] - [id number] Implanted:Qty: 1 on 09/29/2020 by Ramón Taylor MD at OR [facility] Right: Eye [employer]CH [employer] LOMB 11/25/2020 [id number] / [id number] / Lens Intraoc 11.5 - [id number] - [id number] Implanted:Qty: 1 on 10/06/2020 by Ramón Taylor MD at OR [facility] Left: Eye BAUSCH & LOMB 07/27/2021 [id number] / [id number] / [id number] documented as of this encounter Visit Diagnoses Diagnosis HTN, goal below 140/90 Unspecified essential hypertension documented in this encounter Care Teams Drop Worker Relationship Specialty Start Date End Date Mariluz Peace MD [address] [place] [address] PCP - General Internal Medicine 06/28/18 documented as of this encounter
--- OUTSIDE RECORDS SUMMARY | 2023-09-02 07:00 | External Medical Summary | Summary of Care ---
Author Name Unknown Organization [facility] Address [address] [place] [address] Phone [phone] Care Team Providers Care Living Skills Advisor Name Role Phone Mariluz Peace MD Primary Care Provider [phone] Reason for Visit * Reason Onset Date Comments eRx-Medication Refill Appointment 04/13/2023 Encounter Details Date Type Department Care Team Description 04/13/2023 Refill General Internal Medicine [facility] 200 [facility] [place], [place] [phone] Mariluz Peace MD 200 [place], [place] [phone] Dyslipidemia, goal LDL below 100 Allergies Active Allergy Reactions Severity Noted Date Comments Alendronate Nausea/vomiting Low 09/29/2022 Lightheadedness, muscle aches, jaw pain documented as of this encounter (statuses as of 04/14/2023) Medications Medication Sig Dispensed Refills Start Date [...] as of this encounter (statuses as of 04/14/2023) Active Problems Problem Noted Date Chronic kidney [...] as of this encounter (statuses as of 04/14/2023) Resolved Problems Problem Noted Date Resolved Date [...] as of this encounter (statuses as of 04/14/2023) Immunizations Name Administration Dates Next Due COVID-19 [...] nov * Telephone Encounter - Nelda Campa [facility] - 04/14/2023 7:45 AM EDTPending Prescriptions: Disp Refills Rosuvastatin Calcium 40 MG Oral Tablet [Ph*90 Tab*2 Sig: TAKE 1 TABLET BY MOUTH DAILY IN THE EVENING * Telephone Encounter - Nelda Campa RP - 04/14/2023 7:44 AM EDT Last creatinine [...] Additional history exists CKD HGB USE SMARTSET 52925 12/23/202312/22, 12/22/2022, 01/12/2022, Additional history exists CKD PHOS USE SMARTSET 47991 12/23/2023 12/22/2022 HbA1c 12/23/2023 12/22/2022, 11/0 03/2022, 12/01/2021, Additional history exists TSH 12/23/2023 12/22/2022, 11/0 03/2022, 01/06/2022, Additional history exists Depression Screening, Annual for Pts 12 and Over 12/30/2023 12/29/2022 DXA Scan 01/05/2024 01/04/2022 Pneumococcal Vaccine: 65+ Years Completed 02/03/2016, 06/12/2014 Cologuard Discontinued 09/12/2019 Colorectal Cancer Screening Discontinued VITAMIN D LEVEL ONCE IN A LIFETIME-USE SMARTSET# 45435 Completed 07/11/2022 Colonoscopy Discontinued Fecal Occult Blood [...] this encounter Medical Devices Implanted Type Area Side Sawyer Device Identifier Shelf Expiration Date Model / Serial / Lot Lens Intraoc 10.5 - [id number] - [id number] Implanted:Qty: 1 on 09/29/2020 by Ramón Taylor MD at OR [facility] Right: Eye [employer]CH [employer] LOMB 11/25/2020 [id number] / [id number] / Lens Intraoc 11.5 - [id number] - [id number] Implanted:Qty: 1 on 10/06/2020 by Ramón Taylor MD at [facility] Left: Eye BAUSCH [employer] LOMB 07/27/2021 [id number] / [id number] / [id number] documented as of this encounter Visit Diagnoses Diagnosis Dyslipidemia, goal LDL below 100 Other and unspecified hyperlipidemia documented in this encounter Care Teams Living Skills Advisor Relationship Specialty Start Date End Date Mariluz Peace MD 200 [place] [address] PCP - General Internal Medicine 06/28/18 documented as of this encounter
[2023-09-02 07:30] LABS: Estimated Average Glucose 126 mg/dl
[2023-09-02] MEDS ORDERED: ENALAPRIL MALEATE 10 MG TAB PO SCH (09:00)
[2023-09-02] MEDS ORDERED: amLODIPine BESYLATE 5 MG TAB PO SCH (09:00)
--- OUTSIDE RECORDS SUMMARY | 2023-09-02 11:02 | External Medical Summary | Summary of Care ---
Author Name Unknown Organization [facility] Address [address] [place] [address] Phone [phone] Care Team Providers Care Flame Brazing Machine Operator Name Role Phone Mariluz Peace MD Primary Care Provider [phone] Reason for Visit * Reason Onset Date Comments Advice 09/01/2023 Encounter Details Date Type Department Care Team ([facility] Contact Info) Description 09/01/2023 Telephone General Internal Medicine [facility] 200 [place] [address] Mariluz Peace MD 200 [place], [place] [phone] Advice Allergies Active Allergy Reactions Criticality Noted Date Comments Alendronate Nausea/vomiting Low 09/29/2022 Lightheadedness, muscle aches, jaw pain documented as of this encounter (statuses as of 09/01/2023) Medications Medication Sig Dispensed Refills Start Date [...] as of this encounter (statuses as of 09/01/2023) Active Problems Problem Noted Date Diagnosed Date [...] as of this encounter (statuses as of 09/01/2023) Resolved Problems Problem Noted Date Diagnosed Date [...] as of this encounter (statuses as of 09/01/2023) Immunizations Name Administration Dates Next Due COVID-19 mRNA, LNP-s, No Pre serve, 2-Dose Series ([employer]) 09/20/2021,12/29/2020,12/08/2020 Pneumococcal Conjugate Vacc, 13 Valent (Prevnar) [...] encounter Miscellaneous Notes * Telephone Encounter - Linda Ocampo LPN - 09/01/2023 2:33 PM EST Contacted patient's to assist with scheduling appointment. He states they are at the ER right now. * Telephone Encounter - Angelica Lowe OSA - 09/01/2023 12:05 PM EST No Appointments Available Patient declined appointments?: No What Visit Type is needed? Acute If Acute Visit Type is needed, were surrounding clinics offered to patient (Yes/No)? Yes Was patient offered appointments with other available providers (Yes/No)? Yes See Call Details? (Yes or No): No Patient has been sick for 8 days, she started to feel better but now she is really sick she has full body aches, chills, cough, nausea, sinus congestion and possibly dehydrated. Tried to schedule herappointments but nothing was available. Please contact with advice and if an appointment becomes available. documented in this encounter Plan of Treatment Upcoming Encounters Date Type Department Care Team (Late st Contact Info) Description 09/11/2023 11:20 AM EST Office Visit General Internal Medicine [place] [facility] [address] [place] [address] Mariluz Peace MD 200 [facility] [place] [address] Health Maintenance Due Date Last Done Comments [...] Additional history exists CKD HGB USE SMARTSET 77268 12/23/202312/22, 12/22/2022, 01/12/2022, Additional history exists CKD PHOS USE SMARTSET 08283 12/23/2023 12/22/2022 HbA1c 12/23/2023 12/22/2022, 03/2022, 12/01/2021, Additional history exists TSH 12/23/2023 12/22/2022, 0 03/2022, 01/06/2022, Additional history exists Depression Screening 12/30/2023 12/29/2022 DXA Scan 01/05/2024 01/04/2022 Pneumococcal Vaccine: 65+ Years Completed 02/03/2016, 06/12/2014 Cologuard Discontinued 09/12/2019 Colorectal Cancer Screening Discontinued VITAMIN D LEVEL ONCE IN A LIFETIME-USE SMARTSET# 21814 Completed 07/11/2022 Colonoscopy Discontinued Fecal Occult Blood [...] this encounter Medical Devices Implanted Type Area Rate Engineer Device Identifier Shelf Expiration Date Model / Serial / Lot Lens Intraoc 10.5 - [id number] - [id number] Implanted:Qty: 1 on 09/29/2020 by Ramón Taylor MD at OR [facility] Right: Eye [employer]OMB 11/25/2020 [id number] / [id number] / Lens Intraoc 11.5 - [id number] - [id number] Implanted:Qty: 1 on 10/06/2020 by Ramón Taylor MD at OR [facility] Left: Eye [employer]USCH [employer] LOMB 07/27/2021 [id number] / [id number] / [id number] documented as of this encounter Care Teams Flame Brazing Machine Operator Relationship Specialty Start Date End Date Mariluz Peace MD 200 [facility] [place] [address] PCP - General Internal Medicine 06/28/18 documented as of this encounter
--- NOTE | 2023-09-02 13:26 | Hospitalist Progress Note ---
Date of Service September 02, 2023 Assessment & Plan (1) COVID-19: Plan: Ms. Floyd is a 73-year-old female with past med history significant for hypothyroidism, hypertension, prediabetes, left bundle branch block, hypertension, CKD stage III, osteoarthritis, comes because of nausea and chills and flulike symptoms and found to COVID and UTI and admitted for management of symptoms, as well as evaluation of troponin elevation. Per admitting HPI "Patient states she had flu like symptoms 9 days ago and for first 4 days she was lethargic had headaches and poor appetite and body aches but no fevers and that got better after 4 days for couple of days then again she was not feeling great and last night she developed nausea and chills which prompted her to come to the ER today. Has some mild headache today. Denies any chest pain. Currently no shortness of breath. Has some nausea. Mild abdominal discomfort. 1 week ago she had diarrhea but that got resolved. Micturating okay. No burning micturition. No hematuria. Currently resting comfortably." Patient reports feeling much improved since presentation. She states she overall has no symptoms and would like to discharge soon. Troponin normalized. Urine culture still pending with [facility] on culture-- COVID-19 Says having symptoms for last 9 days Saturating okay on room air COVID precautions Supportive care #Relative hypotension #HTN -Usually on amlodipine-benazepril at home Held am amlodipine-enalapril given low pressure, will continue to hold at this time #UTI Likely contributing to her symptoms Culture with GNB Continue CTX, transition to PO when culture results #Mild elevation of troponin *resolved Mostly demand ischemia Asymptomatic CTM #Hypothyroidism On Synthyroid #Prediabetes a1c 6.0% 09/02 Carb consistent diet #CKD stage III Presented with creatinine 1.29 Seems around baseline Follow labs DVT prophylaxis Lovenox Disposition Med/tele Full code Admission and Anticipated Discharge Date Admission Date: September 01, 2023 Subjective Reports feeling much improved overall this morning. Denies any lingering headache at this time. Denies chest pain, SOB, cough or other acute concerns Brief episode of asymptomatic hypotension per nursing, SBP in 80s, but subsequently improved to 120s on later repeat Remains on room air Review of Systems Review of Systems: All systems reviewed & are unremarkable except as noted in Subjective Physical Exam Constitutional: WD/WN, vitals as above Respiratory: normal respiratory effort, lungs clear to auscultation Cardiovascular: RRR, no murmur, no edema Results & Data Results & Data Vital Signs (Past 12 Hours) Vital Signs Temp Pulse Pulse Resp BP BP Pulse Ox 09/02/23 12:37 36.5 C 73 20 122/60 98 09/02/23 09:57 80/40 L 09/02/23 09:57 36.9 C 64 22 85/41 L 80/40 L 98 09/02/23 09:00 09/02/23 07:19 64 09/02/23 06:00 68 19 110/62 97 09/02/23 02:56 68 16 101/47 L 94 09/02/23 02:00 77 O2 Del Method 09/02/23 12:37 Room Air 09/02/23 09:57 09/02/23 09:57 Room Air 09/02/23 09:00 Room Air 09/02/23 07:19 09/02/23 06:00 Room Air 09/02/23 02:56 Room Air 09/02/23 02:00 Laboratory Results Short CBC 09/01/23 09/02/23 Range/Units 15:20 05:37 WBC 13.05 H 7.55 (4.8-10.8) K/ul Hgb 11.7 L 10.0 L (12.0-16.0) g/dl Hct 34.2 L 30.8 L (37.0-47.0) % Plt Count 152 117 L (130-400) K/uL BMP 09/01/23 09/02/23 15:20 05:37 Sodium 137 140 Potassium 3.7 3.7 Chloride 103 110 H Carbon Dioxide 25 23 BUN 26 H 20 Creatinine 1.29 H 1.21 H Glucose 114 H 136 H Calcium 9.4 8.4 L Liver Function 09/01/23 Range/Units 15:20 Total Bilirubin 0.7 (0.2-1.0) mg/dl AST 15 (13-39) U/L ALT 14 (7-52) U/L Alkaline Phosphatase 89 (34-104) U/L Albumin 4.2 (3.4-5.0) gm/dl Urine 09/01/23 Range/Units 15:37 Urine Color Yellow Urine Appearance Cloudy A (Clear) Urine pH 6.5 (4.5-7.5) Ur Specific [place] 1.017 (1.000-1.030) Urine Protein 2+ H (Negative) Urine Glucose (UA) Negative (Negative) Medications Administered Home Medications Medication Instructions Recorded Confirmed Last Taken acetaminophen 500 mg capsule 1,000 mg PO TID PRN Pain 01/13/22 09/01/23 01/18/22 22:00 amlodipine 5 mg-benazepril 10 mg 1 cap PO QAM 01/13/22 09/01/23 09/01/23 capsule aspirin 81 mg tablet,delayed 81 mg PO PM 01/13/22 09/01/23 08/31/23 release celecoxib 200 mg capsule (Celebrex) 200 mg PO DAILY PRN Pain 01/13/22 09/01/23 01/16/22 cholecalciferol (vitamin D3) 25 25 mcg PO PM 01/13/22 09/01/23 08/31/23 mcg (1,000 unit) capsule (Vitamin D3) levothyroxine 75 mcg tablet 75 mcg PO QAM 01/13/22 09/01/23 09/01/23 rosuvastatin 40 mg tablet (Crestor) 40 mg PO PM 01/13/22 09/01/23 08/31/23 omeprazole 20 mg capsule,delayed 20 mg PO DAILY PRN 09/01/23 09/01/23 Unknown release HEARTBURN/INDIGESTION Active Medications Generic Name Dose Route Start Last Admin Trade Name Freq PRN Reason Stop Dose Admin Amlodipine Besylate 5 mg 09/02/23 09:00 09/02/23 10:17 Amlodipine Besylate 5 Mg Tab PO 10/02/23 08:59 Not Given [facility] Enalapril Maleate 10 mg 09/02/23 09:00 09/02/23 10:17 Enalapril Maleate 10 Mg Tab PO 10/02/23 08:59 Not Given [facility] Enoxaparin Sodium 40 mg 09/02/23 00:00 09/02/23 02:11 Enoxaparin Inj 40 Mg/0.4 Ml Syr SQ 10/02/23 00:00 40 mg HS FATIMAH Administration Levothyroxine Sodium 75 mcg 09/02/23 06:30 09/02/23 06:04 Levothyroxine Sodium 75 Mcg Tablet PO 10/02/23 06:29 75 mcg DAILYBB FATIMAH Administration
[2023-09-02] MEDS ORDERED: cefTRIAXone SODIUM 2,000 MG in DEXTROSE 5 % MINI-B 50 ML IV SCH (18:00)
[2023-09-02] MEDS ORDERED: CHOLECALCIFEROL 1,000 UNITS 25 MCG TAB PO SCH (21:00)
[2023-09-02] MEDS ORDERED: ROSUVASTATIN CALCIUM 20 MG TAB PO SCH (21:00)
[2023-09-02] MEDS ORDERED: ASPIRIN 81 MG ECTAB PO SCH (21:00)
[2023-09-02] MEDS ORDERED: MELATONIN 3 MG TAB PO PRN (23:11)
[2023-09-03 03:43] LABS: Hematocrit (blood only) 31.9 % (37.0-47.0); Hemoglobin 10.1 g/dl (12.0-16.0); Mean Corpuscular Hemoglobin 29.9 pg (25.0-34.0); Mean Corpuscular Hgb Conc 31.7 g/dL (32.0-36.0); Mean Corpuscular Volume 94.4 fL (80.0-100.0); Mean Platelet Volume 10.5 fL (9.4-12.4); Platelet Count 140 K/uL (130-400); RDW Coefficient of Variation 13.1 % (11.5-14.5); Red Blood Count 3.38 M/uL (4.20-5.40); White Blood Count 5.75 K/ul (4.8-10.8)
[2023-09-03 03:59] LABS: BUN Creatinine Ratio 16.1 (10-20); Calcium 8.9 mg/dl (8.6-10.3); Creatinine Clr Calc Pharmacy 34.8 ml/min; Est GFR (African American) 52.2 ml/min; Est GFR (Non-African American) 45.1 ml/min; Magnesium 2.2 mg/dl (1.7-2.4); Phosphorus 2.6 mg/dl (2.5-4.9)
[2023-09-03] MEDS: LEVOTHYROXINE SODIUM 75 MCG TABLET PO SCH (05:51)
[2023-09-03] MEDS ORDERED: ONDANSETRON 4 MG OD TAB PO SCH (09:00)
[2023-09-03] MEDS ORDERED: CIPROFLOXACIN 500 MG TAB PO SCH (09:00)
--- NOTE | 2023-09-03 09:14 | Discharge Summary ---
Discharge Summary Date of Service September 03, 2023 Notes For Next Care Provider Medication Changes From Visit Ciprofloxacin 250mg BID, 5 more days Zofran prn Admission HPI Per Admitting Provider 73-year-old female with past med history significant for hypothyroidism, hypertension, prediabetes, left bundle branch block, hypertension, CKD stage III, osteoarthritis, comes because of nausea and chills and flulike symptoms and found to COVID and UTI. Patient states she had flu like symptoms 9 days ago and for first 4 days she was lethargic had headaches and poor appetite and body aches but no fevers and that got better after 4 days for couple of days then again she was not feeling great and last night she developed nausea and chills which prompted her to come to the ER today. Has some mild headache today. Denies any chest pain. Currently no shortness of breath. Has some nausea. Mild abdominal discomfort. 1 week ago she had diarrhea but that got resolved. Micturating okay. No burning micturition. No hematuria. Currently resting comfortably. Past medical history. As mentioned above. Past surgical history. Left ankle surgery. Cataracts Social history. . Smoked quarter pack a day for 8 years. No alcohol use. No drug use. Family history. Brother had diabetes. Heart disorder. Father had hyperlipidemia. Hypertension. Mother had lung disorder. Admission Exam Per Admitting Provider General- adult Head- atraumatic Eyes- PERRL. ENT- oropharynx clear Neck- supple, no JVD. Lungs- clear to auscultation no wheezing or crackles Heart- regular rhythm; no murmur, no gallop. Abdomen- normal bowel sounds, soft, nontender, no distension. Extremities- no pretibial edema, no erythema Neuro- alert, oriented x 3; PERRL, no facial palsy; no dysarthria; moves extremities Skin- warm & dry Principal Dx & Hospital Course #1 = Principal Diagnosis (1) COVID-19: Ms. Floyd is a 73-year-old female with past med history significant for hypothyroidism, hypertension, prediabetes, left bundle branch block, hypertension, CKD stage III, osteoarthritis, comes because of nausea and chills and flulike symptoms and found to COVID and UTI and admitted for management of symptoms, as well as evaluation of troponin elevation. Per admitting HPI "Patient states she had flu like symptoms 9 days ago and for first 4 days she was lethargic had headaches and poor appetite and body aches but no fevers and that got better after 4 days for couple of days then again she was not feeling great and last night she developed nausea and chills which prompted her to come to the ER today. Has some mild headache today. Denies any chest pain. Currently no shortness of breath. Has some nausea. Mild abdominal discomfort. 1 week ago she had diarrhea but that got resolved. Micturating okay. No burning micturition. No hematuria. Currently resting comfortably." Patient treated with IV CTX and symptomatic control with notable imrpovement. Patient reports feeling much improved since presentation. She states she overall has no symptoms and excited to go home. She denies any dysuria, nausea vomiting or acute symptoms, Troponin normalized. Urine culture with ecoli. No oxygen requirement or fevers while admitted. #COVID-19 Says having symptoms for last 9 days Saturating okay on room air COVID precautions Supportive care, tested +09/01 #Relative hypotension #HTN -Usually on amlodipine-benazepril at home Held am amlodipine-enalapril given low pressure Discussed holding home BP med while normotensive and to follow up with PCP for resumption or to resume if SBP >135 consistently #UTI Likely contributing to her symptoms Culture with e coli -Start Ciprofloxacin 250mg BID #Mild elevation of troponin *resolved Mostly demand ischemia Asymptomatic CTM #Hypothyroidism On Synthyroid #Prediabetes a1c 6.0% 09/02 Carb consistent diet #CKD stage III Presented with creatinine 1.29 Seems around baseline Follow labs Discharge Exam Constitutional WD/WN, vitals as above Respiratory normal respiratory effort, lungs clear to auscultation Cardiovascular RRR, no murmur, no edema Updated Medication List Medication Instructions Recorded Confirmed Type acetaminophen 500 mg capsule 1,000 mg PO TID PRN Pain 01/13/22 09/01/23 History amlodipine 5 mg-benazepril 10 mg 1 cap PO QAM 01/13/22 09/01/23 History capsule aspirin 81 mg tablet,delayed 81 mg PO PM 01/13/22 09/01/23 History release celecoxib 200 mg capsule (Celebrex) 200 mg PO DAILY PRN Pain 01/13/22 09/01/23 History cholecalciferol (vitamin D3) 25 25 mcg PO PM 01/13/22 09/01/23 History mcg (1,000 unit) capsule (Vitamin D3) levothyroxine 75 mcg tablet 75 mcg PO QAM 01/13/22 09/01/23 History rosuvastatin 40 mg tablet (Crestor) 40 mg PO PM 01/13/22 09/01/23 History omeprazole 20 mg capsule,delayed 20 mg PO DAILY PRN 09/01/23 09/01/23 History release HEARTBURN/INDIGESTION ciprofloxacin HCl 250 mg tablet 250 mg PO Q12H 5 days #10 tabs 09/03/23 Rx ondansetron 4 mg disintegrating 4 mg PO BID 7 days #14 tabs 09/03/23 Rx tablet Hospital Stay Data Consultations 09/01/23 19:50 ED Decision to Admit Stat Pending Results Patient Have Any Pending Studies at Discharge: No Discharge Instructions Given to Patient (Per Discharging Provider) You were admitted to [facility] for management of UTI and COVID. Initially, there were slight elevations in heart enzyme, that promptly normalized and were likely elevated due to infection. Your blood pressure medication was held during admission as your blood pressure was normal and under 135 (top number/systolic) for the entirety of your stay. It is recommended to hold this medication at this time given the low pressures noted when you were admitted and given you are fighting infection. Please check your blood pressure upon discharge and resume your medication if the top number sustains above 135 systolic. Information about blood pressure checks will be attached. A prescription to your pharmacy was sent for Ciprofloxacin. Please take this tablet twice a day until the course is complete. this is for UTI You will be sent with home with Aisha for nausea. You were afebrile and asymptomatic with COVID. Your test was positive on 09/01. Please keep your follow up on 09/11 with your primary care provider and discuss your blood pressure medication and when to safely resume if your pressures remain less than 135 systolic. Total Time Total Time Spent Total Time Spent (In Minutes): 35
--- NOTE | 2023-09-03 19:30 | Electrocardiogram Report ---
Test Reason : Blood Pressure : / mmHG Vent. Rate : 093 BPM Atrial Rate : 093 BPM P-R Int : 140 ms QRS Dur : 120 ms QT Int : 382 ms P-R-T Axes : 064 -42 086 degrees QTc Int : 474 ms Normal sinus rhythm Left axis deviation Minimal voltage criteria for LVH, may be normal variant ( Félix product ) Left bundle branch block Abnormal ECG When compared with ECG of 12-JAN-2022 10:13, Vent. rate has increased BY 37 BPM Confirmed by Luis Amato ([id number]) on 09/03/2023 7:30:06 PM Referred By: Confirmed By:Luis Amato
--- NOTE | 2023-09-03 22:29 | Electrocardiogram Report ---
Test Reason : Blood Pressure : / mmHG Vent. Rate : 067 BPM Atrial Rate : 067 BPM P-R Int : 132 ms QRS Dur : 118 ms QT Int : 424 ms P-R-T Axes : 058 107 -21 degrees QTc Int : 448 ms Normal sinus rhythm Rightward axis Non-specific intra-ventricular conduction delay Abnormal ECG When compared with ECG of 01-SEP-2023 15:27, T wave inversion now evident in Inferolateral leads Confirmed by Luis Amato ([id number]) on 09/03/2023 10:29:10 PM Referred By: REFERRED SELF Confirmed By:Luis Amato
== END 2023-09-03 13:07 | disposition home or self-care (01) | DRG 178 ==
LOC: ED 13:41 → EDINP 21:27